=== PATIENT | female | born 1945 | race Caucasian/White ===

== ENCOUNTER → 2019-05-04 | Outpatient (CLI) | payer MEDICARE, BC ==
[~2019-05-04] MED LIST: ASPIR 8181 MG PO; ATORVASTATIN CA20 MG PO; BENICAR PO; CELEXA20 MG PO; GLIPIZIDE PO; HYDROCHLOROTHIA25 MG PO; JANUVIA100 MG PO; LEVEMIR100 UNIT/1 SC; LEVOXYL75 MCG PO; METFORMIN PO; antibiotic PO
--- NOTE | 2019-05-04 12:38 | Diagnostic Imaging Report ---
EXAM: Renal Ultrasound INDICATION: ^[id number] ^[id number] ^MICROSCOPIC HEMATURIA COMPARISON: None TECHNIQUE: Transverse and longitudinal images of the kidneys and bladder were obtained. FINDINGS: Right Kidney: Length: 10.3 cm Appearance: Normal echogenicity. Collecting system: No hydronephrosis Stones: None Cyst/Mass: None Left Kidney: Length: 10.3 cm Appearance: Normal echogenicity. Collecting system: No hydronephrosis Stones: None Cyst/Mass: Left upper pole simple cyst measures 1.3 x 1.2 x 1.3 cm Bladder: No mass, stone, or wall thickening. Prevoid volume estimate of 128cc. Bilateral ureteral jets visualized IMPRESSION: No hydronephrosis or renal calculi. Left upper pole simple cyst. Signed by: Che Durant MD on 05/04/2019 12:35 PM
== END ==
LOC: US 10:55
PROVIDERS: ATTEND Urology
DX: R31.21 Asymptomatic microscopic hematuria (principal)
CPT/HCPCS: 76770

== ENCOUNTER → 2019-05-08 | Day surgery (SDC) | payer MEDICARE, BC ==
[2019-05-05 16:26] LABS: BASOPHILS # (AUTO) 0.1 (0.0-0.1); BASOPHILS % 0.6 % (0.0-1.0); EOSINOPHILS # (AUTO) 0.2 (0.0-0.4); EOSINOPHILS % 1.3 % (0.0-6.0); HEMATOCRIT 35.6 % (34.2-44.1); HEMOGLOBIN 11.7 g/dL (12.0-16.0); LYMPHOCYTES # (AUTO) 2.1 (1.0-3.2); LYMPHOCYTES % 17.3 % (18.0-39.1); MEAN CORPUSCULAR HEMOGLOBIN 30.3 pg (28-32); MEAN CORPUSCULAR HGB CONC 32.9 g/dL (31-35); MEAN CORPUSCULAR VOLUME 92.2 fL (81-99); MONOCYTES # (AUTO) 1.1 (0.2-0.8); MONOCYTES % 9.1 % (4.4-11.3); NEUTROPHILS # (AUTO) 8.6 (2.1-6.9); NEUTROPHILS % 71.4 % (38.7-80.0); PLATELET COUNT 262 x10e3/uL (140-360); RED BLOOD COUNT 3.86 x10e6/uL (3.6-5.1); RED CELL DISTRIBUTION WIDTH 14.4 % (11.7-14.4)
[2019-05-05 16:43] LABS: ANION GAP 14.2 mmol/L (8-16); CALCIUM 9.8 mg/dL (8.4-10.2); CREATININE, SERUM 0.97 mg/dL (0.57-1.11); POTASSIUM 4.2 mmol/L (3.5-5.1)
--- NOTE | 2019-05-05 17:02 | Diagnostic Imaging Report ---
EXAMINATION: CHEST 2 VIEWS INDICATION: Pre-operative COMPARISON: None FINDINGS: TUBES and LINES: None. LUNGS: The lung volumes are normal. No focal consolidation or pulmonary edema. PLEURA: No pleural effusion or pneumothorax. HEART AND MEDIASTINUM: The cardiomediastinal silhouette is normal in size and contour. BONES AND SOFT TISSUES: No acute fracture or dislocation. UPPER ABDOMEN: No free air under the diaphragm. IMPRESSION: No focal pneumonia or pulmonary edema. Signed by: Che Durant MD on 05/05/2019 4:58 PM
[~2019-05-08] MED LIST changes: +CEFTRIAXONE SOD 1 GM/NS 50 ML 50 ML IV ONE; +DESFLURANE 240 ML BTL INH ONE; +DEXAMETHASONE SOD PHOS INJ 4 MG/ML VIAL ONE; +FENTANYL CITRATE/PF 100MCG/2 ML INJ ONE; +IOPAMIDOL 610MG/1ML 300 MG/ML VIAL IV ONE; +LIDOCAINE HCL 2% LOCAL INJ 5 ML SDV VIAL INJ ONE; +ONDANSETRON HCL INJ 2MG/ML 2ML 2 MG/ML VIAL ONE; +PROPOFOL IV EMULSION 10 MG/ML 20 ML VIAL ONE
--- OUTSIDE RECORDS SUMMARY | 2019-05-08 06:50 | XMS REPORT ---
Author Author [facility] Address Unknown Phone Unavailable Care Team Providers Care Accounting Director Name Role Phone HARMAN CABRERA Unavailable Unavailable Payers Payer Name Policy Type Policy Number Effective Date Expiration Date Problems This patient has no known problems. Allergies, Adverse Reactions, Alerts Allergy Name Allergy Type Status Severity Reaction(s) Onset Date Inactive Date Treating Clinician Comments No Known Allergies DA Active U 2017-12-08 00:00:00 Medications This patient has no known medications. Results Test Description Test Time Test Comments Text Results Atomic Results Result Comments CHEST 2 VIEWS 2019-05-05 16:57:00 [place] [address] Patient Name: HELGA ORTIZ MR #: [id number] : 1945 Age/Sex: 73/F Req #: [id number] Adm Physician: Ordered by: HARMAN CABRERA MD Report #: [id number] Location: OR Room/Bed: Procedure: [id number] DX/CHEST 2 VIEWS Exam Date: 05/05/19 Exam Time: 1610 REPORT STATUS: Signed EXAMINATION: CHEST 2 VIEWS INDICATION: Pre-operative COMPARISON: None FINDINGS: TUBES and LINES: None. LUNGS: The lung volumes are normal. No focal consolidation or pulmonary edema. PLEURA: No pleural effusion or pneumothorax. HEART AND MEDIASTINUM: The cardiomediastinal silhouette is normal in size and contour. BONES AND SOFT TISSUES: No acute fracture or dislocation. UPPER ABDOMEN: No free air under the diaphragm. IMPRESSION: No focal pneumonia or pulmonary edema. Signed by: Ofe Clark MD on 05/05/2019 4:58 PM Dictated By: OFE CLARK MD 57 Transcribed By: JAY on 05/05/191657 COPY TO: HARMAN CABRERA MD RENAL RETROPERITONEAL COMP 2019-05-04 12:33:00 [place] [address] Patient Name: HELGA ORTIZ MR #: [id number] : 1945 Age/Sex: 73/F Req #: [id number] Adm Physician: Ordered by: HARMAN CABRERA MD Report #: [id number] Location: Room/Bed: Procedure: [id number] US/US RENAL RETROPERITONEAL COMP Exam Date: 05/04/19 Exam Time: 1135 REPORT STATUS: Signed EXAM: Renal Ultrasound INDICATION: [id number] MICROSCOPIC HEMATURIA COMPARISON: None TECHNIQUE: Transverse and longitudinal images of the kidneys and bladder were obtained. FINDINGS: Right Kidney: Length: 10.3 cm Appearance: Normal echogenicity. Collecting system: No hydronephrosis Stones: None Cyst/Mass: None Left Kidney: Length: 10.3 cm Appearance: Normal echogenicity. Collecting system: No hydronephrosis Stones: None Cyst/Mass: Left upper pole simple cyst measures 1.3 x 1.2 x 1.3 cm Bladder: No mass, stone, or wall thickening. Prevoid volume estimate of 128cc. Bilateral ureteral jets visualized IMPRESSION: No hydronephrosis or renal calculi. Left upper pole simple cyst. Signed by: Ofe Clark MD on 05/04/2019 12:35 PM Dictated By: OFE CLARK MD 1235 Transcribed By: JAY on 05/04/19 1235 COPY TO: HARMAN CABRERA MD - CT HEAD/BRAIN W/O CONT 2019-04-19 17:32:00 Name: HELGA ORTIZ [facility] : 1945 Age/S: 73 / F [address] Unit #: [id number] Loc: [place] [address] Phys: Esperanza Sykes MD Acct: [id number] Dis Date: Status: REG ER PHONE #: [phone] Exam Date: 04/19/2019 1702 FAX #: [phone] Reason: head inj eval for bleeding EXAMS: CPT CODE: [id number] CT HEAD/BRAIN W/O CONT 32198 EXAM: CT of the head without contrast; INFORMATION: Status post fall, head injury, evaluate for bleeding; TECHNIQUE AND FINDINGS: CT dose reduction protocol; 2.5 mm axial scans. There is no evidence of intra or extra-axial hemorrhage, mass lesions or midline shift. Mild periventricular and deep white matter hypodensities; small, chronic basal ganglia infarcts; otherwise, unremarkable gutierrez/white matter differentiation. Ventricles are of n ormal diameter; sulci and basilar cisterns are intact. The calvarium is intact. IMPRESSION: 1. No evidence of intracranial hemorrhage or acute territorial infarction. 2. Mild chronic ischemic white matter changes. 3. No evidence of skull fracture. 4. No significant change compared with a study from December 08, 2017. at 1732 Reported and signed by: Gus Toribio M.D. CC: Esperanza Sykes MD Technologist:Arabella Saucedo CTDI: DLP: Trnscb Date/Time: 04/19/2019 (1818) Brandee Orig Print D/T: S: 04/19/2019 (3114) PAGE 1 Signed Report URINALYSIS COMPLETE 2019-04-19 16:41:00 UA COLOR (test code=COLU) YELLOW YELLOW UA APPEARANCE (test code=APPU) CLOUDY CLEAR UA GLUCOSE DIPSTICK (test code=DGLUU) norm mg/dL NEGATIVE UA BILIRUBIN DIPSTICK (test code=BILU) NEGATIVE mg/dL NEGATIVE UA KETONE DIPSTICK (test code=KETU) neg mg/dL NEGATIVE UA SPECIFIC GRAVITY (test code=SGU) 1.025 1.001-1.035 UA BLOOD DIPSTICK (test code=LISA) 150 (3+) Zachary/uL NEGATIVE UA PH DIPSTICK (test code=MARGO) 5.0 5.0-8.0 UA PROTEIN DIPSTICK (test code=PROU) 100 (2+) mg/dL Neg-15 UA UROBILINIOGEN DIPSTICK (test code=URO) norm mg/dL 0.0-0.2 UA NITRITE DIPSTICK (test code=LEONEL) POSITIVE NEGATIVE UA LEUKOCYTE ESTERASE DIPSTICK (test code=LEUU) 500 Karla/uL (3+) uL NEGATIVE UA WBC (test code=WBCU) TNTC per HPF 0-5 UA RBC (test code=RBCU) 5-10 per HPF 0-5 UA EPITHELIAL CELLS (test code=EPIU) Moderate (5-10/hpf) per HPF Few UA BACTERIA (test code=BACU) LOADED per HPF NONE Urine Source? Clean Catch
[2019-05-08 10:30] VITALS: BP 152/75
--- NOTE | 2019-05-09 21:43 | Operative Report ---
DATE OF PROCEDURE: 05/08/2019 SURGEON: Linwood Haines MD PREOPERATIVE DIAGNOSES: 1. Multiple chronic urinary tract infections. 2. Clinical signs and symptoms of interstitial cystitis. POSTOPERATIVE DIAGNOSES: 1. Multiple chronic urinary tract infections. 2. Clinical signs and symptoms of interstitial cystitis with grade 3-4 prolapse, cystocele and rectocele. PROCEDURES: 1. Cystourethroscopy with hydrodistention (entirely separate procedure for clinical signs of interstitial cystitis without hematuria). 2. Cystourethroscopy with left ureteral catheterization and left retrograde pyelogram (separate procedure for multiple chronic urinary tract infections). 3. Cystourethroscopy with right ureteral catheterization and right retrograde pyelogram (separate procedure for multiple chronic urinary tract infections). 4. Supervision of fluoroscopy. 5. Interpretation of retrograde pyelography. ANESTHESIA: General. ESTIMATED BLOOD LOSS: Minimal. COMPLICATIONS: None. INDICATIONS: Ms. Posey is a 73-year-old female with multiple chronic urinary tract infections. She and I had a long discussion about alternatives, risks, and benefits of doing nothing, cystoscopy, IVP, retrograde pyelograms, and renal ultrasound in order to avoid the nephrotoxic risk of dye. She elected to proceed with retrograde problems and hydrodistention. PROCEDURE IN DETAIL: After informed consent was obtained, the patient was taken to operative suite, placed supine on the table, underwent general anesthesia by the Anesthesia service. She was placed in the dorsal lithotomy position, sterilely prepped and draped in standard fashion for cystoscopy. A 21-Barbadian cystoscope was inserted per urethra. There was positive vaginal atrophy noted. There was grade 3-4 prolapse. Hydrodistention was performed, revealed a capacity of 1000 mL, no glomerulations, no Hunner's ulcers. Bilateral retrograde pyelogram was performed, which were normal. The bladder was drained. The patient was awakened from anesthesia and transported to the recovery room in excellent condition. Supervision of fluoroscopy and interpretation of retrograde pyelography: I was present for the entire procedure and supervised the use of fluoroscopy, there was no radiologist present. Attention was turned towards the left and right ureteral orifices, which were catheterized with an 8-Barbadian cone-tipped catheter. In retrograde fashion, contrast was injected revealing delicate ureters, delicate pelvocaliceal systems, no evidence of filling defects, no evidence of hydronephrosis. IMPRESSION: Normal retrograde pyelograms. MD AKHIL Dewitt/SHOAIB /[id number] cc: Og Mcgee MD
== END | disposition home or self-care (01) ==
LOC: OR 06:48
PROVIDERS: ATTEND Urology
DX: N30.10 Interstitial cystitis (chronic) without hematuria (principal); N81.3 Complete uterovaginal prolapse; Z01.810 Encounter for preprocedural cardiovascular examination; Z01.812 Encounter for preprocedural laboratory examination; Z01.811 Encounter for preprocedural respiratory examination; I10 Essential (primary) hypertension; K21.9 Gastro-esophageal reflux disease without esophagitis; K58.9 Irritable bowel syndrome, unspecified; E03.9 Hypothyroidism, unspecified; E11.9 Type 2 diabetes mellitus without complications; Z87.440 Personal history of urinary (tract) infections; N39.46 Mixed incontinence
CPT/HCPCS: 36415 ×2; 52260; 71046; 74420; 80048; 82948; 85025; 93005; C1758; J0696; J1100; J2001; J2405; J2704; J3010; Q9967

== ENCOUNTER 2020-08-26 22:02 | Inpatient (IN) | payer MEDICARE, BC ==
[~2020-08-26] VITALS: Ht 157.5 cm; Wt 76.2 kg
[~2020-08-26 22:02] MED LIST changes: -CEFTRIAXONE SOD 1 GM/NS 50 ML 50 ML IV ONE; -DESFLURANE 240 ML BTL INH ONE; -DEXAMETHASONE SOD PHOS INJ 4 MG/ML VIAL ONE; -FENTANYL CITRATE/PF 100MCG/2 ML INJ ONE; -IOPAMIDOL 610MG/1ML 300 MG/ML VIAL IV ONE; -LIDOCAINE HCL 2% LOCAL INJ 5 ML SDV VIAL INJ ONE; -ONDANSETRON HCL INJ 2MG/ML 2ML 2 MG/ML VIAL ONE; -PROPOFOL IV EMULSION 10 MG/ML 20 ML VIAL ONE
[2020-08-26] MEDS ORDERED: SODIUM CHLORIDE 0.9% 1000ML 1,000 ML IV STA (22:14)
[2020-08-26] MEDS ORDERED: DILTIAZEM HCL 5 MG/ML 5 ML VIAL IV STA (22:14)
[2020-08-26] MEDS ORDERED: CEFEPIME 1GM/NS 0.9% 50 ML 50 ML IV STA (22:17)
[2020-08-26] MEDS ORDERED: AZITHROMYCIN 500MG/NS 250 ML 250 ML IV STA (22:17)
[2020-08-26] MEDS ORDERED: ACETAMINOPHEN 325 MG TAB ONE (22:27)
[2020-08-26] MEDS ORDERED: ACETAMINOPHEN 325 MG TAB PO ONE (22:30)
[2020-08-26 22:51] LABS: BASOPHILS # (AUTO) 0.1 (0.0-0.1); BASOPHILS % 0.2 % (0.0-1.0); EOSINOPHILS # (AUTO) 0.1 (0.0-0.4); EOSINOPHILS % 0.5 % (0.0-6.0); HEMATOCRIT 37.6 % (34.2-44.1); HEMOGLOBIN 12.5 g/dL (12.0-16.0); LYMPHOCYTES # (AUTO) 0.7 (1.0-3.2); LYMPHOCYTES % 3.2 % (18.0-39.1); MEAN CORPUSCULAR HEMOGLOBIN 29.8 pg (28-32); MEAN CORPUSCULAR HGB CONC 33.2 g/dL (31-35); MEAN CORPUSCULAR VOLUME 89.7 fL (81-99); MONOCYTES # (AUTO) 1.2 (0.2-0.8); MONOCYTES % 5.5 % (4.4-11.3); NEUTROPHILS # (AUTO) 19.7 (2.1-6.9); NEUTROPHILS % 89.4 % (38.7-80.0); PLATELET COUNT 232 x10e3/uL (140-360); RED BLOOD COUNT 4.19 x10e6/uL (3.6-5.1); RED CELL DISTRIBUTION WIDTH 13.9 % (11.7-14.4)
[2020-08-26 22:54] LABS: ALBUMIN 3.6 g/dL (3.5-5.0); ALBUMIN/GLOBULIN RATIO 0.9 (0.8-2.0); ANION GAP 16.4 mmol/L (8-16); CALCIUM 9.8 mg/dL (8.4-10.2); CLARITY,URINE CLOUDY (CLEAR); COLOR,URINE YELLOW (YELLOW); CREATININE, SERUM 1.12 mg/dL (0.57-1.11); POTASSIUM 4.4 mmol/L (3.5-5.1)
[2020-08-26 22:55] LABS: BILIRUBIN,URINE NEGATIVE (NEGATIVE); KETONES,URINE 1+ (NEGATIVE); LEUKOCYTE ESTERASE ,URINE NEGATIVE (NEGATIVE); NITRITE,URINE NEGATIVE (NEGATIVE); PROTEIN,URINE DIPSTICK >=300 (NEGATIVE); URINE UROBILINOGEN 0.2 mg/dL (0.2 - 1)
--- OUTSIDE RECORDS SUMMARY | 2020-08-26 22:55 | XMS REPORT | Continuity of Care Document ---
Author Author [facility] t Organization [facility] Address [address] [place] [address] Phone Unavailable Care Team Providers Care Commercial Property Manager Name Role Phone Everardo SOOD, Linwood Og PCP Gina SOOD, Jane Attphys LINWOOD CABRERA Attphys Unavailable Payers Payer Name Policy Type Policy Number Effective Date Expiration Date S ource BCBSBCBS CHOICE PPO/FEDERAL EMPL [id number] 2009-PresentPPO [id number] 2009 00:00:00 Rene Santana MEDICAREMEDICARE PART A AND [id number]/10/2011-PresentDAJA HOOK [facility] [id number] 2012 00:00:00 Rene Santana Problems Condition Name Condition Details Condition Category Status Onset Date Resolution Date Last Treatment Date Treating Clinician Comments Source Parkinsonism Parkinsonism Disease Active 2020-06-08 00:00:00 Rene Santana Mild cognitive impairment Mild cognitive impairment Disease Ac tive 2020-06-08 00:00:00 Rene sofia History of TIA (transient ischemic attack) History of TIA (transient ischemic attack) Disease Active 2020-06-08 00:00:00 Daja Santana History of recurrent UTIs History of recurrent UTIs Disease Ac tive 2020-06-08 00:00:00 Rene sofia Tremor Tremor Disease Active 2020-06-08 00:00:00 Rene Santana Driving safety issue Driving safety issue Disease Active 00:00:00 Rene Santana Allergies, Adverse Reactions, Alerts Allergy Name Allergy Type Status Severity Reaction(s) Onset Date Inacti ve Date Treating Clinician Comments Source Gabapentin Propensity to adverse reactions to drug Active Anxiety 2020-06-08 00:00:00 Rene lomas No Known Allergies DA Active U 2017-12-08 00:00:00 [facility] Family History Family Member Diagnosis Comments Start Date Stop Date Source Natural father Stroke [facility] Natural mother Diabetes [facility] Natural mother Stroke [facility] Social History Social Habit Start Date Stop Date Quantity Comments Source History SDOH Alcohol Std Drinks Rene Mormon History SDOH Alcohol Binge Rene Santana Sex Assigned At Jeanine Santana Tobacco use and exposure 2020-06-09 00:00:00 2020-06-09 00:00:00 Enrrique salcedo used Rene Santana Alcohol intake 2020-06-09 00:00:00 2020-06-09 00:00:00 Lifetime non-drinker (finding) Rene Santana History SDOH Alcohol Frequency 2020-06-08 00:00:00 2020-06-08 00:00:0 0 1 Rene Santana Smoking Status Start Date Stop Date Source Never smoker Rene lomas Medications Ordered Medication Name Filled Medication Name Start Date Stop Da te Current Medication? Ordering Clinician Indication Dosage Frequency Signature (SIG) Comments Components Source carbidopa-levodopa (SINEMET) 25-100 mg per tablet 2020-06-08 00:00:00 Yes Parkinsonism, unspecified Parkinsonism type (HCC) 1/2 tab p.o. in a.m. and midafternoon with food x7 days. 1 tab twice daily as directed with food x7 days, 1 tab 3 times daily with meals Jeanine Santana Vital Signs Vital Name Observation Time Observation Value Comments Source Systolic blood pressure 2020-06-08 08:42:00 132 mm[Hg] Rene Santana Diastolic blood pressure 2020-06-08 08:42:00 77 mm[Hg] Rene Santana Heart rate 2020-06-08 08:42:00 88 /min Rene Santana Body height 2020-06-08 08:42:00 157.5 cm Rene Santana Body weight 2020-06-08 08:42:00 77.111 kg Rene Santana BMI 2020-06-08 08:42:00 31.09 kg/m2 Rene Santana Procedures Procedure Date / Time Performed Performing Clinician Guido penn COMPREHENSIVE METABOLIC PANEL 2020-06-28 11:31:00 Rasheed Fuentes VITAMIN B1 LEVEL, WHOLE BLOOD 2020-06-28 11:31:00 Rasheed Fuentes VITAMIN B12 LEVEL 2020-06-28 11:31:00 Jane Fu[facility] THYROID STIMULATING HORMONE 2020-06-28 11:31:00 Jane Fuentes T4, FREE 2020-06-28 11:31:00 Jane Fuentes Meth odist MRI BRAIN WO CONTRAST 2020-06-22 11:02:31 Jane Fuentesto n Mormon Plan of Care Planned Activity Planned Date Details Comments Source Future Scheduled Test 2020-05-21 00:00:00 INFLUENZA VACCINE [code = INFLUENZA VACCINE] Rene Sahaist Future Scheduled Test 2012 00:00:00 65+ PNEUMOCOCCAL V ACCINE (1 of 1 - PPSV23) [code = 65+ PNEUMOCOCCAL VACCINE (1 of 1 - PPSV23)] [facility] Future Scheduled Test 1997 00:00:00 BREAST CANCER SCRE ENING [code = BREAST CANCER SCREENING] [facility] Future Scheduled Test 1997 00:00:00 COLONOSCOPY SCREEN ING [code = COLONOSCOPY SCREENING] [facility] Future Scheduled Test 1997 00:00:00 SHINGLES VACCINES (#1) [code = SHINGLES VACCINES (#1)] Rene Santana Encounters Start Date/Time End Date/Time Encounter Type Ad[facility] ID Source 2020-06-22 00:00:00 2020-06-22 00:00:00 Outpatient [facility]EL[facility] [id number] Rene Santana 2020-06-08 00:00:00 2020-06-08 00:00:00 Outpatient GINA [facility]ELMO [facility] [id number] Rene Santana Results Test Description Test Time Test Comments Results Result Comments Source Comprehensive metabolic panel 2020-07-02 10:52:00 Test Item Glucose (test code = 2345-7) 194 mg/dL 65-139 H Non-fasting reference interval BUN (test code = 3094-0) 27 mg/dL 7-25 H Creatinine (test code = 2160-0) 1.10 mg/dL 0.6-0.93 H For patients >49 years of age, the reference limitfor Creatinine is approximately 13% higher for peopleidentified as -Trinidadian. EGFR Non-Afr. Trinidadian (test code = 2775) 50 > OR = 60 mL /min/1.73m2 L EGFR (test code = 94590-6) 58 > OR = 60 mL/min/1.73m2 L BUN/creatinine ratio (test code = 3097-3) 25 6- 22 (calc) H Sodium (test code = 2951-2) 138 mmol/L 135-146 Potassium (test code = 2823-3) 4.5 mmol/L 3.5-5.3 Chloride (test code = 5-0) 102 mmol/L 98-110 CO2 (test code = 2027-9) 26 mmol/L 20-32 Calcium (test code = 97550-8) 10.2 mg/dL 8.6-10.4 Protein (test code = 2885-2) 7.4 g/dL 6.1-8.1 Albumin, S (test code = 1751-7) 4.1 g/dL 3.6-5.1 Globulin, total (test code = 63846-2) 3.3 1.9- 3.7 g/dL (c alc) Albumin/globulin ratio (test code = 1759-0) 1.2 1.0- 2.5 ( calc) Total bilirubin (test code = 1974-) 0.4 mg/dL 0.2-1.2 Alkaline phosphatase (test code = 6768-6) 61 U/L 37-153 AST (test code = 1920-8) 19 U/L 10-35 ALT (test code = 1742-6) 8 U/L 6-29 JORGE (test code = JORGE) FASTING:NOFASTING: NO RAC (test code = RAC) Performing Organization Info rmation: Site ID: RGA Name: [facility] Address: [address] [place] [address] Director: Liam Best Lab Interpretation (test code = 58066-2) Abnormal [facility]i MethodistVitamin B12 [id number] 10:52:00* Test Item Value Reference Range Interpretation Comments Vitamin B12 (test code = 2132-9) 914 pg/mL 200-1100 JORGE (test code = JORGE) FASTING:NOFASTING: NO RAC (test code = RAC) Performing Organization Info rmation: Site ID: ALEENA Name: [facility] Address: [address] [place] [address] Director: Liam Johnsridge Arabi MethodistT4, [id number] 10:52:00* Test Item Value Reference Range Interpretation Comments T4, free (test code = 3024-7) 1.4 ng/dL 0.8-1.8 JORGE (test code = JORGE) FASTING:NOFASTING: NO RAC (test code = RAC) Performing Organization Info rmation: Site ID: ALEENA Name: [facility] Address: [address] [place] [address] Director: Liam Dooleyenridge Arabi MormonThyroid stimulating [id number] 10:52:00* Test Item Value Reference Range Interpretation Comments TSH (test code = 3016-3) 0.43 0.40- 4.50 mIU/L JORGE (test code = JORGE) FASTING:NOFASTING: NO RAC (test code = RAC) Performing Organization Info rmation: Site ID: ALEENA Name: [facility] Address: [address] [place] [address] Director: Liam Johnsridge Arabi MormonVitamin B1 level, whole [id number] 10:52:00* Test Item Value Reference Range Interpretation Comments Vitamin B1, whole blood (test code = 99886-7) 238 nmol/L 78-185 H Vitamin supplementation within 24 hours prior toblood draw may affect the accuracy of results. This test was developed and its analytical performance characteristics have been determined by [facility]. It has not been cleared or approved by theA. This assay has been validated pursuant to the CLIA regulations and is used for clinical purposes. JORGE (test code = JORGE) FASTING:NOFASTING: NO RAC (test code = RAC) Performing Organization Info rmation: Site ID: SLI Name: [facility] Address: [address] [place] [address] Director: Shayne Sky M.D., Ph.D Lab Interpretation (test code = 22414-4) Abnormal [facility] Brain Wo [id number] 11:45:23Hm Interface, Radiology Results - 06/22/2020 11:48 AM CDTStudy:MRI BRAIN WO CONTRASTHistory:G20 Parkinson's disease, G31.84 Mild cognitive impairment so stated, Cognitive decline. Parkinson features on the right. History of TIAs. Uncontrolled diabetesCOMPARISON:None.TECHNIQUE: Multiplanar multisequence MR images of the brain without IV contrast.FINDINGS:Parenchymal volume is normal for age. There are changes of chronic small vessel ischemic disease, mild in degree. There is also FLAIR hyperintensity signal change of the vinod without volume loss also likely related to small vessel chronic change. There is no acute infarct, hemorrhage, midline shift, hydrocephalus, extra-axial collections, or edema. The orbits are unremarkable. The visualized paranasal sinuses and mastoid air cells are without significant fluid signal. The calvarium is unremarkable.IMPRESS ION:Mild chronic small vessels ischemic change.[facility]-[id number] Mormon SCR MAMM BILATERAL SAMY CAD [id number] 13:21:54 - SCR MAMM BILATERAL SAMY CAD DIGITALBILATERAL DIGITAL SCREENING MAMMOGRAM 3D/2D WITH CAD: 06/03/2020CLINICAL: Asymptomatic. Digital breast tomosynthesis was performed in addition to routine CC and MLO views. Current mammographic images were evaluated by either a [employer] M-Vu or a [employer] ImageChecker CAD (computer aided detection system). Comparison is made to exams dated 05/15/2019 mammogram, 01/17/2018 mammogram - [facility], and 03/07/2016 mammogram - [facility] [place]. There are scattered fibroglandular tissues in jeanine th breasts. No suspicious mass, architectural distortion, malignant type calcif ication, or lymph node abnormality detected. Breast architecture is stable comp ared to prior exams.IMPRESSION: NEGATIVEThere is no mammographic evidence of mal ignancy. Resume annual screening mammography in one year. Eliseo Santana ss/penrad:06/03/2020 13:21:54 Candy Butcher: Iris Lorenzana, [facility] sent: BIRADS 1-2 Normal Mammogram BI-RADS: 1 NegativeSCR MAMM BILATERAL SAMY CAD [id number] 10:13:48 - SCR MAMM BILATERAL SAMY CAD DIGITALBILATERAL DIGITAL SCREENING MAMMOGRAM 3D/2D WITH CAD: 05/15/2019CLINICAL: Asymptomatic. Digital breast tomosynthesis was performed in addition to routine CC and MLO views. Current mammographic images were evaluated by either a [employer] M-Vu or a Gluc[employer]ista ImageCrowdsourcing.orgcker CAD (computer aided detection system). Comparison is made to exams dated 01/17/2018 mammogram - [facility]-, 03/07/2016 mammogram, and 07/06/2014 mammogram - [facility]. There are scattered fibroglandular tissues in both breasts. No suspicious mass, architectural distortion, malignant type calcif ication, or lymph node abnormality detected. Breast architecture is stable comp ared to prior exams.IMPRESSION: NEGATIVEThere is no mammographic evidence of mal ignancy. Resume annual screening mammography in one year. Becca Schulz M.D. sf/penrad:05/16/2019 10:13:48 Candy Butcher: Kami Biares , [facility] sent: BIRADS 1-2 Normal Mammogram BI-RADS: 1 Negati veCHEST 2 [id number] 16:57:00 [place] [address] Patient Name: HELGA POSEY MR #: [id number] : 1945 Age/Sex: 73/F Req #: [id number] Adm Physician: Ordered by: LINWOOD CABRERA MD Report #: [id number] Location: OR Room/Bed: Procedure: [id number] DX/CH EST 2 VIEWS Exam Date: 05/05/19 Exam Time: 1610 REPORT STATUS: Signed EXAMINATION: CHEST 2 VIEWS INDICATION: Pre-operative COMPARISON: None FINDINGS: TUBES and LINES: None. LUNGS: The lung volumes are normal. No focal consolidation or pulmonary edema. PLEURA: No pleural effusion or p neumothorax. HEART AND MEDIASTINUM: The cardiomediastinal silhouette is no rmal in size and contour. BONES AND SOFT TISSUES: No acute fracture or di slocation. UPPER ABDOMEN: No free air under the diaphragm. IMPRESSION: No focal pneumonia or pulmonary edema. Signed by: Ofe Clark MD on 4:58 PM Dictated By: OFE CLARK MD 57 Transcribed By: JAY on 05/05/191657 COPY TO: LINWOOD CABRERA MD RENAL RETROPERITONEAL [id number] 12:33:00 [place] [address] Patient Name: HELGA POSEY MR #: [id number] : 1945 Age/Sex: 73/F Req #: [id number] Adm Physician: Ordered by: LINWOOD CABRERA MD Report #: [id number] Location: Room/Bed: Procedure: [id number] US/US RENAL RETROPERITONEAL COMP Exam Date: 05/04/19 Exam Time: 1136 REPORT STATUS: Signed EXAM: Renal Ultrasound INDICATION: [id number] MICROSCOPIC HEMATURIA COMPARISON: None TECHNIQUE: Transverse and longitudinal images of the kidneys and bladder were obtained. FINDINGS: Right K idney: Length: 10.3 cm Appearance: Normal echogenicity. Collecting syst em: No hydronephrosis Stones: None Cyst/Mass: None Left Kidney: Yanet th: 10.3 cm Appearance: Normal echogenicity. Collecting system: No hydrone phrosis Stones: None Cyst/Mass: Left upper pole simple cyst measures 1.3 x 1 .2 x 1.3 cm Bladder: No mass, stone, or wall thickening. Prevoid volume estimate of 128cc. Bilateral ureteral jets visualized IMPRESSION: No hy dronephrosis or renal calculi. Left upper pole simple cyst. Signed by: Ofe Clark MD on 05/04/2019 12:35 PM Dictated By: OFE CLARK MD Electro nically Signed By: OFE CLARK MD on 05/04/19 1235 Transcribed By: JAY on 1235 COPY TO: LINWOOD CABRERA MD - CT HEAD/BRAIN W/O CONT 2019-04-19 17:32:00 Name: KALPESHHELGA LORD [facility] : 1945 Age/S: 73 / F [address] [facility] Unit #: [id number] Loc: [place] [address] Phys: Esperanza Sykes MD Acct: [id number] Dis Date: Status: REG ER PHONE #: [phone] Exam Date: 04/19/2019 1702 FAX #: [phone] Reason: head inj eval for bleeding EXAMS: CPT CODE: [id number] CT HEAD/BRAIN W/O CONT 17994 EXAM: CT of the head without contrast; INFORMATION: Status post fall, head injury, evaluate for bleeding; TECHNIQUE AND FINDINGS: CT dose reduction protocol; 2.5 mm axial scans. There is no evidence of intra or extra-axial hemorrhage, mass lesions or midline shift. Mild periventricular and deep white matter hypodensities; small, chronic basal ganglia infarcts; otherwise, unremarkable gutierrez/white matter differentiation. Ventricles are of normal diameter; sulci and basilar cisterns are intact. [...] Technologist:Arabella Saucedo CTDI: DLP: Trnscb Date/Time: 04/19/2019 (173) ChangGRW Orig Print D/T: S: 04/19/2019 (8187) PAGE 1 Signed Report URINALYSIS [id number] 16:41:00* Test Item Value Reference Range Interpretation Comments UA COLOR (test code = COLU) YELLOW YELLOW UA APPEARANCE (test code = APPU) CLOUDY CLEAR A UA GLUCOSE DIPSTICK (test code = DGLUU) norm mg/dL NEGATIVE UA BILIRUBIN DIPSTICK (test code = BILU) NEGATIVE mg/dL NEGATIVE UA KETONE DIPSTICK (test code = KETU) neg mg/dL NEGATIVE UA SPECIFIC GRAVITY (test code = SGU) 1.025 1.001-1.035 UA BLOOD DIPSTICK (test code = LISA) 150 (3+) Zachary/uL NEGATIVE A UA PH DIPSTICK (test code = MARGO) 5.0 5.0-8.0 UA PROTEIN DIPSTICK (test code = PROU) 100 (2+) mg/dL Neg-15 A UA UROBILINIOGEN DIPSTICK (test code = URO) norm mg/dL 0.0-0.2 UA NITRITE DIPSTICK (test code = LEONEL) POSITIVE NEGATIVE UA LEUKOCYTE ESTERASE DIPSTICK (test code = LEUU) 500 Karla/uL (3+) u L NEGATIVE A UA WBC (test code = WBCU) TNTC per HPF 0-5 A UA RBC (test code = RBCU) 5-10 per HPF 0-5 A UA EPITHELIAL CELLS (test code = EPIU) Moderate (5-10/hpf) per HPF Few UA BACTERIA (test code = BACU) LOADED per HPF NONE A Urine Source? Clean Catch
--- OUTSIDE RECORDS SUMMARY | 2020-08-26 22:55 | XMS REPORT | Clinical Summary ---
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 90 tablet 4 (SINEMET) 25-100 mg per in a.m. and 0 tabletIndications: midafternoon Parkinsonism, unspecified with food x7 Parkinsonism type (HCC) days. 1 tab twice daily as directed with food x7 days, 1 tab 3 times daily with meals Active Problems Problem Noted Date Parkinsonism 06/08/2020 Mild cognitive impairment 06/08/2020 History of TIA (transient ischemic attack) 0 History of recurrent UTIs 06/08/2020 Tremor 06/08/2020 Driving safety issue 06/08/2020 Encounters Care Team Description Date Type Specialty Jane Laura MD Parkinsonism, unspecified Parkinsonism t ype ([facility]); Mild cognitive impairment 06/22/2020 Hospital Radiology Encounter 06/22/2020 Travel Jane Laura MD Parkinsonism, unspecified Parkinsonism t ype (HCC) (Primary Dx); Mild cognitive impairment; History of TIA (transient ischemic attack); History of recurrent UTIs; Tremor; Driving safety issue 06/08/2020 Office Visit Neurology 06/08/2020 Travel after 08/26/2019 Surgical History Surgery Date Site/Laterality Comments FOOT SURGERY BELPHAROPTOSIS REPAIR Medical History Medical History Date Comments UTI (urinary tract infection) Hypertension Diabetes mellitus (HCC) TIA (transient ischemic attack) Family History Medical History Relation Name Comments Stroke Father Diabetes Mother Stroke Mother Relation Name Status Comments Father (Age 80) Mother Alive Social History Date Tobacco Use Types Packs/Day Years Used Never Smoker Smokeless Tobacco: Never Used Drinks/Week oz/Week Comments Alcohol Use Never Alcohol Habits Answer Date Recorded How often do you have a drink containing alcohol? Never 06/08/2020 How many drinks containing alcohol do you have on No t asked a typical day when you are drinking? How often do you have six or more drinks on one Not asked occasion? Sex Assigned at Date Recorded Not on file Last Filed Vital Signs Reading Time Taken Comments Vital Sign 132/77 06/08/2020 8:42 AM CDT Blood Pressure 88 06/08/2020 8:42 AM CDT Pulse - - Temperature - - Respiratory Rate - - Oxygen Saturation - - Inhaled Oxygen Concentration 77.1 kg (170 lb) 06/08/2020 8:42 AM CDT Weight 157.5 cm (5' 2") 06/08/2020 8:42 AM CDT Height 31.09 06/08/2020 8:42 AM CDT Body Mass Index Plan of Treatment Care Team Description Date Type Specialty Jane Laura MD 0 [facility] [address] [place] [id number] 09/26/2020 Telemedicine Neurology Health Maintenance Due Date Last Done Comments BREAST CANCER SCREENING 1997 COLONOSCOPY SCREENING 1997 SHINGLES VACCINES (#1) 1997 65+ PNEUMOCOCCAL VACCINE 2012 (1 of 1 - PPSV23) INFLUENZA VACCINE 05/21/2020 Procedures Comments Procedure Name Priority Date/Time Associated Diag nosis T4, FREE Routine 06/28/2020 Tremor 11:31 AM CDT THYROID STIMULATING Routine 06/28/2020 Mild cogni tive impairment HORMONE 11:31 AM CDT Tremor VITAMIN B12 LEVEL Routine 06/28/2020 Mild cogniti ve impairment 11:31 AM CDT VITAMIN B1 LEVEL, WHOLE Routine 06/28/2020 Mild c ognitive impairment BLOOD 11:31 AM CDT COMPREHENSIVE METABOLIC Routine 06/28/2020 Mild c ognitive impairment PANEL 11:31 AM CDT MRI BRAIN WO CONTRAST Routine 06/22/2020 Parkinso nism, unspecified 11:02 AM CDT Parkinsonism type (HCC) Mild cognitive impairment after 08/26/2019 Results * Vitamin B1 level, whole blood (06/28/2020 11:31 AM CDT) Vitamin B1, 238 (H) 78 - 185 nmol/L [facility] whole blood Comment: DI[facility]NOSTICS Vitamin supplementation within [place] 24 hours prior to [place] blood draw may affect the accuracy of results. This test was developed and its analytical performance characteristics have been determined by [facility]. It has not been cleared or approved by the FDA. This assay has been validated pursuant to the CLIA regulations and is used for clinical purposes. Specimen Blood Narrative Performed At FASTING:NO [facility] FASTING: NO Resulting Agency Comment Performing Organization Information: Site ID: [id number] [facility]: [facility] Address: [address] [place] [id number] Director: Shayne Sky M.D., Ph.D Performing Organization Address [facility] P patricia Number [facility] [address] [phone] [place] * Thyroid stimulating hormone (06/28/2020 11:31 AM CDT) Pathologist [facility] TSH 0.43 0.40 - 4.50 mIU/L [employer] [facility] [place] Specimen Blood Narrative Performed At FASTING:NO [facility] FASTING: NO Resulting Agency Comment Performing Organization Information: Site ID: [id number] Name: [facility] Address: [address] [place] [id number] Director: Liam Best Performing Organization Address City/[facility] P patricia Number [facility] [address] [phone] * T4, free (06/28/2020 11:31 AM CDT) Pathologist [facility] T4, free 1.4 0.8 - 1.8 ng/dL [employer] [place] Specimen Blood Narrative Performed At FASTING:NO [facility] FASTING: NO Resulting Agency Comment Performing Organization Information: Site ID: [id number] Name: [facility] Address: [address] [place] [id number] Director: Liam Best Performing Organization Address City/[facility] P patricia Number [facility] [address] [phone] * Vitamin B12 level (06/28/2020 11:31 AM CDT) Vitamin B12 914 200 - 1,100 pg/mL [facility] Specimen Blood Narrative Performed At FASTING:NO [facility] FASTING: NO Resulting Agency Comment Performing Organization Information: Site ID: [id number] Name: [facility] Address: [address] [place] [phone] Director: Liam Best Performing Organization Address City/State/ZIP Code P patricia Number [facility] [employer] [facility] [address] [place], [place] [address] * Comprehensive metabolic panel (06/28/2020 11:31 AM CDT) Glucose 194 (H) 65 - 139 mg/dL [facility] Comment: DI[facility]NOSTICS Non-fasting [place] reference interval BUN 27 (H) 7 - 25 mg/dL [facility] [place] Creatinine 1.10 (H) 0.60 - 0.93 mg/dL [facility] Comment: DIAGNOSTICS For patients >49 years of age, [place] the reference limit for Creatinine is approximately 13% higher for people identified as -[place]. EGFR Non-Afr. 50 (L) > OR = 60 [facility] [place] mL/min/1.73m2 [facility] [place] EGFR 58 (L) > OR = 60 [facility] [place] mL/min/1.73m2 [facility] BUN/creatinine 25 (H) 6 - 22 (calc) [facility] ratio [facility] [place] Sodium 138 135 - 146 mmol/L [facility] [place] Potassium 4.5 3.5 - 5.3 mmol/L [facility] [place] Chloride 102 98 - 110 mmol/L [facility] [place] CO2 26 20 - 32 mmol/L [facility] [place] Calcium 10.2 8.6 - 10.4 mg/dL [facility] [place] Protein 7.4 6.1 - 8.1 g/dL [facility] [place] Albumin, S 4.1 3.6 - 5.1 g/dL [facility] [place] Globulin, total 3.3 1.9 - 3.7 g/dL [facility] (calc) [facility] [place] Albumin/globuli 1.2 1.0 - 2.5 (calc) [facility] n ratio [facility] [place] Total bilirubin 0.4 0.2 - 1.2 mg/dL [facility] [place] Alkaline 61 37 - 153 U/L [facility] phosphatase [facility] [place] AST 19 10 - 35 U/L [employer] [place] ALT 8 6 - 29 U/L [employer] [place] Specimen Blood Narrative Performed At FASTING:NO [facility] FASTING: NO Resulting Agency Comment Performing Organization Information: Site ID: [id number] Name: [facility] Address: [address] [place] [address] Director: Liam Best Performing Organization Address City/State/ZIP Code P patricia Number [facility] [employer] [facility] [place] [address] [place], [place] [address] * MRI Brain Wo Contrast (06/22/2020 11:02 AM CDT) Specimen Narrative Performed At Study:MRI BRAIN WO CONTRAST [facility] History:G20 Parkinson's disease, G31.84 Mild cognitive impairment so stated, Cognitive decline. Parkinson features on the right. History of TIAs. Uncontrolled diabetes COMPARISON:None. TECHNIQUE: Multiplanar multisequence MR images of the brain without IV contrast. FINDINGS: Parenchymal volume is normal for age. T here are changes of chronic small vessel ischemic disease, mild in degree. There is also FLAIR hyperintensity signal change of the vinod without volume loss also likely related to small vessel chronic change. There is no acute infarct, hemorrhage, midlin e shift, hydrocephalus, extra-axial collections, or edema. The orbits are u nremarkable. The visualized paranasal sinuses and mastoid air cells are witho ut significant fluid signal. The calvarium is unremarkable. IMPRESSION: Mild chronic small vessels ischemic nahun nge. [id number] Procedure Note Hm Interface, Radiology Results Incoming - 06/22/2020 11:48 AM CDT Study:MRI BRAIN WO CONTRAST History:G20 Parkinson's disease, G31.84 Mild cognitive impairment so stated, Cognitive decline. Parkinson features on the right. History of TIAs. Uncontrolled diabetes COMPARISON:None. TECHNIQUE: Multiplanar multisequence MR images of the brain without IV contrast. FINDINGS: Parenchymal volume is normal for age. There are [...] without significant fluid signal. The calvarium is unremarkable. IMPRESSION: Mild chronic small vessels ischemic change. 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
[2020-08-26 23:01] LABS: CREATINE KINASE MB 1.2 ng/mL (0-5.0)
--- NOTE | 2020-08-26 23:03 | Emergency Department Note ---
History of Present Illnes History of Present Illness Chief Complaint: COVID PUI History of Present Illness This is a 75 year old female arrived to the ED with generalized weakness and malaise for 1 day. Patient also complaining of fever and headache. 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 Any updates have been documented here. Past Medical History Recent Fever: Yes Clinical Suspicion of Infectio: Yes New/Unexplained Change in Ment: No Past Medical History: Hypertension, Diabetes, Hypothyroidism, Depression Other Medical History: PARKINSON'S Past Surgical History: Tubal Ligation Social History Smoking Cessation: Never Smoker Counseling Performed: No Alcohol Use: None Any Illegal Drug Use: No Physically hurt or threatened: No Other Any Pre-Existing Lines (PICC,: No Review of Systems Review of Systems Constitutional: Reports as per HPI, Reports fever, Reports malaise, Reports weakness EENTM: Reports no symptoms Cardiovascular: Reports no symptoms Respiratory: Reports as per HPI, Reports cough Gastrointestinal: Reports no symptoms Genitourinary: Reports no symptoms Musculoskeletal: Reports no symptoms Integumentary: Reports no symptoms Neurological: Reports as per HPI, Reports headache Psychological: Reports no symptoms Endocrine: Reports no symptoms Hematological/Lymphatic: Reports no symptoms Physical Exam Related Data Allergies: Coded Allergies: No Known Allergies (Unverified , 07/31/13) Triage Vital Signs Vital Signs Date Time Temp Pulse Resp B/P (MAP) Pulse Ox O2 Delivery O2 Flow Rate FiO2 08/26/20 22:08 100.5 134 23 151/86 96 Room Air Vital signs reviewed: Yes Physical Exam CONSTITUTIONAL Constitutional: Present well-developed HENT HENT: Present normocephalic, Present atraumatic, Present oropharynx clear/moist, Present nose normal HENT L/R: Present left ext ear normal, Present right ext ear normal EYES Eyes: Reports PERRL, Reports conjunctivae normal NECK Neck: Present ROM normal PULMONARY Pulmonary: Present effort normal, Present breath sounds normal CARDIOVASCULAR Cardiovascular: Present irregular rhythm, Present heart sounds normal, Present capillary refill normal, Present tachycardia GASTROINTESTINAL Abdominal: Present soft, Present nontender, Present bowel sounds normal GENITOURINARY Genitourinary: Present exam deferred SKIN Skin: Present warm, Present dry MUSCULOSKELETAL Musculoskeletal: Present ROM normal NEUROLOGICAL Neurological: Present alert, Present no gross motor or sensory deficits PSYCHOLOGICAL Psychological: Present mood/affect normal, Present judgement normal Results Laboratory Result Diagram: 08/26/20221408/26/202214 Laboratory Laboratory Tests Test 08/26/20 22:30 08/26/20 22:15 White Blood Count 22.02 x10e3/uL (4.8-10.8) Red Blood Count 4.19 x10e6/uL (3.6-5.1) Hemoglobin 12.5 g/dL (12.0-16.0) Hematocrit 37.6 % (34.2-44.1) Mean Corpuscular Volume 89.7 fL (81-99) Mean Corpuscular Hemoglobin 29.8 pg (28-32) Mean Corpuscular Hemoglobin Concent 33.2 g/dL (31-35) Red Cell Distribution Width 13.9 % (11.7-14.4) Platelet Count 232 x10e3/uL (140-360) Neutrophils (%) (Auto) 89.4 % (38.7-80.0) Lymphocytes (%) (Auto) 3.2 % (18.0-39.1) Monocytes (%) (Auto) 5.5 % (4.4-11.3) Eosinophils (%) (Auto) 0.5 % (0.0-6.0) Basophils (%) (Auto) 0.2 % (0.0-1.0) Neutrophils # (Auto) 19.7 (2.1-6.9) Lymphocytes # (Auto) 0.7 (1.0-3.2) Monocytes # (Auto) 1.2 (0.2-0.8) Eosinophils # (Auto) 0.1 (0.0-0.4) Basophils # (Auto) 0.1 (0.0-0.1) Absolute Immature Granulocyte (auto 0.27 x10e3/uL (0-0.1) Urine Color Yellow (YELLOW) Urine Clarity Cloudy (CLEAR) Urine pH 5 (5 - 7) Urine Specific [facility] >=1.030 (1.010-1.025) Urine Protein >=300 (NEGATIVE) Urine Glucose (UA) 2+ (NEGATIVE) Urine Ketones 1+ (NEGATIVE) Urine Blood Negative (NEGATIVE) Urine Nitrite Negative (NEGATIVE) Urine Bilirubin Negative (NEGATIVE) Urine Urobilinogen 0.2 mg/dL (0.2 - 1) Urine Leukocyte Esterase Negative (NEGATIVE) Sodium Level 134 mmol/L (136-145) Potassium Level 4.4 mmol/L (3.5-5.1) Chloride Level 100 mmol/L (98-107) Carbon Dioxide Level 22 mmol/L (22-29) Anion Gap 16.4 mmol/L (8-16) Blood Urea Nitrogen 18 mg/dL (7-26) Creatinine 1.12 mg/dL (0.57-1.11) Estimat Glomerular Filtration Rate 48 ML/MIN (60-) BUN/Creatinine Ratio 16 (6-25) Glucose Level 253 mg/dL (74-118) Lactic Acid Level 2.3 mmol/L (0.5-2.0) Calcium Level 9.8 mg/dL (8.4-10.2) Total Bilirubin 0.7 mg/dL (0.2-1.2) Aspartate Amino Transf (AST/SGOT) 16 IU/L (5-34) Alanine Aminotransferase (ALT/SGPT) 25 IU/L (0-55) Alkaline Phosphatase 62 IU/L (40-150) Creatine Kinase 83 IU/L (29-168) Total Protein 7.7 g/dL (6.5-8.1) Albumin 3.6 g/dL (3.5-5.0) Globulin 4.1 g/dL (2.3-3.5) Albumin/Globulin Ratio 0.9 (0.8-2.0) Lipase 16 U/L (8-78) Lab results reviewed: Yes Imaging Imaging results reviewed: Yes Procedures 12 Lead ECG Interpretation ECG Interpretation : ECG: ECG 1 Prior ECG tracings: reviewed Rhythm: atrial fibrillation Rate: tachycardia ST segments normal: Yes Clinical Impression: abnormal ECG Critical Care Time Total Critical Care Time (min): 65 Critical care time exclusive o: separately billable procedures Critcal care necessary due to: cardiac failure, sepsis Assessment & Plan Medical Decision Making MDM Concerns of severe sepsis present at 2252, patient's symptoms may be related to the coronavirus, however, sep-1 bundle was initiated Blood cultures and lactic acid obtained Broad-spectrum antibiotics were given Patient noted to be in A. fib with RVR, this may be secondary to infectious etiology, fluid resuscitation and fever control provided Lactic acid improved, no indications for weight base fluid bolus given no presence of septic shock at time of admission. Assessment & Plan Final Impression: (1) Atrial fibrillation with RVR (2) Severe sepsis (3) Pneumonia Depart Disposition: ADMITTED Last Vital Signs Date Time Temp Pulse Resp B/P (MAP) Pulse Ox O2 Delivery O2 Flow Rate FiO2 08/26/20 22:51 143 27 130/72 96 Room Air 08/26/20 22:08 100.5 Home Meds Reported Medications Aspirin (ASPIR 81) 81 Mg Tablet.dr, 81 MG PO DAILY 05/05/19 Insulin Detemir (LEVEMIR) 100 Unit/1 Ml Vial, 12 SC HS 05/05/19 Sitagliptin Phosphate (JANUVIA) 100 Mg Tablet, 100 MG PO DAILY, #30 TAB 05/05/19 Atorvastatin Calcium (ATORVASTATIN CALCIUM) 20 Mg Tablet, 20 MG PO HS, #30 TAB 05/05/19 Citalopram Hydrobromide (CELEXA) 20 Mg Tablet, 40 MG PO DAILY 07/31/13 Levothyroxine Sodium (LEVOXYL) 75 Mcg Tablet, 112 MCG PO DAILY 07/31/13 [Metformin] 1,000 No Conflict Check, PO BID 07/31/13 Medications in the ED Sodium Chloride 1,000 ml @ 0 mls/hr Q0M STAT IV Last administered on 08/26/20at 22:34; Admin Dose 999 MLS/HR; Start 08/26/20 at 22:14; Stop 08/26/20 at 22:16; Status DC Diltiazem HCl 10 mg NOW STAT IV ; Start 08/26/20 at 22:14; Stop 08/26/20 at 22:17; Status DC Acetaminophen 650 mg ONCE ONCE PO Last administered on 08/26/20at 22:34; Admin Dose 650 MG; Start 08/26/20 at 22:30; Stop 08/26/20 at 22:31; Status DC Cefepime HCl 50 ml @ 100 mls/hr DAILY STAT IV ; Start 08/26/20 at 22:17; Stop 08/26/20 at 22:46; Status DC Azithromycin 250 ml @ 200 mls/hr NOW STAT IV Last administered on 08/26/20at 22:30; Admin Dose 200 MLS/HR; Start 08/26/20 at 22:17; Stop 08/26/20 at 23:31 Acetaminophen 650 mg STK-MED ONCE .ROUTE ; Start 08/26/20 at 22:27; Stop 08/26/20 at 22:20; Status DC KEVIN BUTLER DO Aug 26, 2020 22:58
[2020-08-26 23:05] LABS: BACTERIA,URINE MANY /HPF; EPITHELIAL CELLS,URINE FEW /LPF; WBC,URINE (MAN) >50 /HPF (0-5)
--- NOTE | 2020-08-26 23:13 | Diagnostic Imaging Report ---
EXAMINATION: CHEST SINGLE (PORTABLE) INDICATION: ^Y ^weakness ^[id number] ^[id number] COMPARISON: 05/05/2019 FINDINGS: AP view TUBES and LINES: None. LUNGS: Lungs are well inflated. Prominent interstitial lung markings. Left basilar hazy opacification. PLEURA: No pneumothorax. HEART AND MEDIASTINUM: The cardiac silhouette is partially obscured. BONES AND SOFT TISSUES: No acute osseous lesion. Soft tissues are unremarkable. UPPER ABDOMEN: No free air under the diaphragm. IMPRESSION: Prominent interstitial lung markings, could be chronic or represent mild interstitial edema. Left basilar hazy opacification representing small effusion/atelectasis. Underlying pneumonia cannot be excluded in the appropriate clinical context. Signed by: Dr. Ki Nava MD on 08/26/2020 11:10 PM
[2020-08-26] MEDS ORDERED: SODIUM CHLORIDE 0.9% 1000ML 1,000 ML ONE (23:52)
[2020-08-27] VITALS (11 sets, daily range): BP systolic 121–159; BP diastolic 53–63
[2020-08-27] MEDS ORDERED: SODIUM CHLORIDE 0.9% 1000ML 1,000 ML IV ONE
[2020-08-27] MEDS ORDERED: VANCOMYCIN HCL 1GM/NS 250 ML BAG IV SCH (00:15)
--- OUTSIDE RECORDS SUMMARY | 2020-08-27 00:26 | XMS REPORT | Clinical Summary ---
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 Name Role Phone Og Mcgee MD PCP [...] Laura MD Parkinsonism, unspecified Parkinsonism t ype (FORM[facility]); Mild cognitive impairment 06/22/2020 Hospital Radiology Encounter 06/22/2020 Travel Jane Laura MD Parkinsonism, unspecified Parkinsonism t ype (HCC) (Primary Dx); Mild cognitive impairment; History of TIA (transient ischemic attack); History of recurrent UTIs; Tremor; Driving safety issue 06/08/2020 Office Visit Neurology 06/08/2020 Travel after 08/27/2019 Surgical History Surgery Date Site/Laterality Comments FOOT [...] Date Type Specialty Jane Laura MD 0 [facility] [address] [place] [id number] 09/26/2020 Telemedicine Neurology Health Maintenance Due [...] Parkinsonism type (HCC) Mild cognitive impairment after 08/27/2019 Results * Vitamin B1 level, whole blood (06/28/2020 11:31 AM CDT) Vitamin B1, 238 (H) 78 - 185 nmol/L [facility] whole blood Comment: DIAGNOSTICS Vitamin supplementation within [place] 24 hours prior to [place] blood draw may affect the accuracy of results. This test was developed and its analytical performance characteristics have been determined by [employer]. It has not been cleared or approved by the FDA. This assay has been validated pursuant to the CLIA regulations and is used for clinical purposes. Specimen Blood Narrative Performed At FASTING:NO [facility] FASTING: NO Resulting Agency Comment Performing Organization Information: Site ID: [id number] [facility]: [facility] Address: [address] [place] [phone] Director: Shayne Sky M.D., Ph.D Performing Organization Address [facility] P patricia Number [facility] [address] [address] [place] * Thyroid stimulating hormone (06/28/2020 11:31 AM CDT) Pathologist [facility] TSH 0.43 0.40 - 4.50 mIU/L [facility] [place] Specimen Blood Narrative Performed At FASTING:NO [facility] FASTING: NO Resulting Agency Comment Performing Organization Information: Site ID: RGA Name: [facility] Address: [address] [place] [phone] Director: Liam Best Performing Organization Address City/[facility] P patricia Number [facility] [address] [address] * T4, free (06/28/2020 11:31 AM CDT) Pathologist [facility] T4, free 1.4 0.8 - 1.8 ng/dL [employer] [place] Specimen Blood Narrative Performed At FASTING:NO [facility] FASTING: NO Resulting Agency Comment Performing Organization Information: Site ID: RGA Name: [facility] Address: [address] [place] [phone] Director: Liam Best Performing Organization Address City/[facility] P patricia Number [facility] [address] 6[address] * Vitamin B12 level (06/28/2020 11:31 AM CDT) Vitamin B12 914 200 - 1,100 pg/mL [facility] Specimen Blood Narrative Performed At FASTING:NO [facility] FASTING: NO Resulting Agency Comment Performing Organization Information: Site ID: RGA Name: [facility] Lab Address: [address] [place] [phone] Director: Liam Best Performing Organization Address City/State/ZIP Code P patricia Number [facility] [address] [place], [place] [address] * Comprehensive metabolic panel (06/28/2020 11:31 AM CDT) Glucose 194 (H) 65 - 139 mg/dL [facility] Comment: DIAGNOSTICS Non-fasting [place] reference interval BUN 27 (H) 7 - 25 mg/dL [facility] [place] Creatinine 1.10 (H) 0.60 - 0.93 mg/dL [facility] Comment: DIAGNOSTICS For patients >49 years of age, [place] the reference limit for Creatinine is approximately 13% higher for people identified as -Chinese. EGFR Non-Afr. 50 (L) > OR = 60 [facility] Chinese mL/min/1.73m2 [facility] [place] EGFR 58 (L) > OR = 60 [facility] Chinese mL/min/1.73m2 [facility] BUN/creatinine 25 (H) 6 - 22 (calc) [facility] [place] Sodium 138 135 - 146 mmol/L [facility] [place] Potassium 4.5 3.5 - 5.3 mmol/L [facility] [place] Chloride 102 98 - 110 mmol/L [facility] [place] CO2 26 20 - 32 mmol/L [facility] [place] Calcium 10.2 8.6 - 10.4 mg/dL [facility] [place] Protein 7.4 6.1 - 8.1 g/dL [facility] [place] Albumin, S 4.1 3.6 - 5.1 g/dL [facility] [place] Globulin, total 3.3 1.9 - 3.7 g/dL [facility] (calc) [facility] [place] Albumin/globuli 1.2 1.0 - 2.5 (calc) [facility] n [facility] [place] Total bilirubin 0.4 0.2 - 1.2 mg/dL [facility] [place] Alkaline 61 37 - 153 U/L [facility] phosphatase [facility] [place] AST 19 10 - 35 U/L [employer] [place] ALT 8 6 - 29 U/L [employer] [place] Specimen Blood Narrative Performed At FASTING:NO [facility] FASTING: NO Resulting Agency Comment Performing Organization Information: Site ID: ALEENA Name: [facility] Address: [address] [place] [address] Director: Liam Best Performing Organization Address City/State/ZIP Code P patricia Number [facility] [place] [address] [place], [place] [address] * MRI Brain Wo [...] Mild chronic small vessels ischemic nahun nge. [id number] Procedure Note Hm Interface, Radiology Results Incoming [...] IMPRESSION: Mild chronic small vessels ischemic change. [facility][id number] Performing Organization Address City/State/ZIP Code P patricia Number [facility] [address] [place] [address] after 08/27/2019 Insurance Type Payer Benefit Subscriber ID Effective Phone Address Plan / Dates Group PPO BCBS BCBS [id number] 2009-P CHOICE resent PPO/OPHELIA [employer] EMPL PPO Medicare MEDICARE MEDICARE [id number] 2012-P [place], PART A AND resent [place] B Advance Directives For more information, please contact: [phone] Patient Clinic Specialist Explanation Type Date Recorded Advance Directives, Living Will and Medical Power of Operations Consultant
--- OUTSIDE RECORDS SUMMARY | 2020-08-27 00:27 | XMS REPORT | Continuity of Care Document ---
Author Author [facility] t Organization [facility] Address [address] [place] [address] Phone Unavailable Care Team Providers Care Spot Washer Name Role Phone Everardo SOOD, Linwood Og PCP Luis Enrique BUTLER Attphys Unavailable Jane Fuentes MD Attphys LINWOOD CABRERA Attphyluis enrique Unavailable Payers Payer Name Policy Type Policy Number Effective Date Expiration Date S kristian BCBSBCBS CHOICE PPO/[employer] EMPL [id number] 2009-PresentPPO [id number] 2009 00:00:00 Rene Santana MEDICAREMEDICARE PART A AND [id number] 2011-PresentDAJA HOOK [place] [id number] 2012 00:00:00 Rene Santana Problems Condition Name [...] recurrent UTIs Disease Ac tive 2020-06-08 00:00:[address] Tremor Tremor Disease Active 2020-06-08 00:00:00 Rene Santana Driving safety issue Driving safety issue Disease Active 00:00:00 Rene Santana Allergies, Adverse Reactions, Alerts Allergy Name Allergy Type Status Severity Reaction(s) Onset Date Inacti ve Date Treating Clinician Comments Source Gabapentin Propensity to adverse reactions to drug Active Anxiety 2020-06-08 00:00:00 Rene lomas No Known Allergies DA Active U 2017-12-08 00:00:00 [facility] Family History Family Member Diagnosis Comments Start Date Stop Date Source Natural father Stroke [place] [facility] Natural mother Diabetes [place] [facility] Natural mother Stroke [place] [facility] Social History Social Habit Start Date Stop Date Quantity Comments Source History SDOH Alcohol Std Drinks Rene Santana History SDOH Alcohol Binge Rene Santana Sex Assigned At Jeanine Santana Tobacco use and exposure 2020-06-09 00:00:00 2020-06-09 00:00:00 Enrrique r used Rene Santana Alcohol intake 2020-06-09 00:00:00 [...] Procedure Date / Time Performed Performing Clinician Sourtamiko e COMPREHENSIVE METABOLIC PANEL 2020-06-28 11:31:00 Rasheed Fuentes VITAMIN B1 LEVEL, WHOLE BLOOD 2020-06-28 11:31:00 Rasheed Fuentes VITAMIN B12 LEVEL 2020-06-28 11:31:00 Jane Fuentes [facility] THYROID STIMULATING HORMONE 2020-06-28 11:31:00 Jane Fuentes T4, FREE 2020-06-28 11:31:00 Jane Fuentes Meth odist MRI BRAIN WO CONTRAST 2020-06-22 11:02:31 Jane Fuentes Plan of Care Planned Activity Planned Date Details Comments Source Future Scheduled Test 2020-05-21 00:00:00 INFLUENZA VACCINE [code = INFLUENZA VACCINE] [facility] Future Scheduled Test 2012 00:00:00 65+ PNEUMOCOCCAL V ACCINE (1 of 1 - PPSV23) [code = 65+ PNEUMOCOCCAL VACCINE (1 of 1 - PPSV23)] [facility] Future Scheduled Test 1997 00:00:00 BREAST CANCER SCRE ENING [code = BREAST CANCER SCREENING] [facility] Future Scheduled Test 1997 00:00:00 COLONOSCOPY SCREEN ING [code = COLONOSCOPY SCREENING] [facility] Future Scheduled Test 1997 00:00:00 SHINGLES VACCINES (#1) [code = SHINGLES VACCINES (#1)] Rene Santana Encounters Start Date/Time End Date/Time En[facility] ID Source 2020-06-22 00:00:00 2020-06-22 00:00:00 Outpatient [facility] [id number] Rene Santana 2020-06-08 00:00:00 2020-06-08 00:00:00 Outpatient [facility] [id number] Rene Santana Results Test Description Test Time Test Comments Results Result Comments Source CHEST SINGLE (PORTABLE) 2020-08-26 23:08:00 [facility] 1945 Sex: F [facility] [address] [address] Patient Name: HELGA POSEY MR #: [id number] : 1945 Age/Sex: 75/F Req #: [id number] Adm Physician: Ordered by: KEVIN BUTLER DO Report #: [id number] Location: ER Room/Bed: Procedure: [id number] DX/CHEST SINGLE (PORTABLE) Exam Date: 08/26/20 Exam Time: 2249 REPORT STATUS: Signed EXAMINATION: CHEST SINGLE (PORTABLE) INDICATION: Y weakness [id number] COMPARISON: 05/05/2019 FINDINGS: AP view TUBES and LINES: None. LUNGS: Lungs are well inflated. Prominent interstitial lung markings. Left basilar hazy opacification. PLEURA: No pneumothorax. HEART AND MEDIASTINUM: The cardiac silhouette is partially obscured. BONES AND SOFT TISSUES: No acute osseous lesion. Soft tissues are unremarkable. UPPER ABDOMEN: No free air under the diaphragm. IMPRESSION: Prominent interstitial lung markings, could be chronic or represent mild interstitial edema. Left basilar hazy opacification representing small effusion/atelectasis. Underlying pneumonia cannot be excluded in the appropriate clinical context. Signed by: Dr. iK thibodeaux MD on 08/26/2020 11:10 PM Dictated By: KI HANNON MD 09 Transcribed By: JAY on 08/26/202309 COPY TO: KEVIN BUTLER DO Comprehensive metabolic panel 2020-07-02 10:52:00 Test Item Glucose (test code = 2345-7) 194 mg/dL 65-139 H Non-fasting reference interval BUN (test code = 3094-0) 27 mg/dL 7-25 H Creatinine (test code = 2160-0) 1.10 mg/dL 0.6-0.93 H For patients >49 years of age, the reference limitfor Creatinine is approximately 13% higher for peopleidentified as -Nigerien. EGFR Non-Afr. Nigerien (test code = 2775) 50 > OR = 60 mL /min/1.73m2 L EGFR (test code = 94535-7) 58 > OR = 60 mL/min/1.73m2 L BUN/creatinine ratio (test code = 3097-3) 25 6- 22 (calc) H Sodium (test code = 2951-2) 138 mmol/L 135-146 Potassium (test code = 2823-3) 4.5 mmol/L 3.5-5.3 Chloride (test code = 2074-0) 102 mmol/L 98-110 CO2 (test code = 2027-9) 26 mmol/L 20-32 Calcium (test code = 50665-6) 10.2 mg/dL 8.6-10.4 Protein (test code = 2885-2) 7.4 g/dL 6.1-8.1 Albumin, S (test code = 1751-7) 4.1 g/dL 3.6-5.1 Globulin, total (test code = 05206-2) 3.3 1.9- 3.7 g/dL (c alc) Albumin/globulin [...] Organization Info rmation: Site ID: ALEENA Name: [facility] Address: [address] [place] [address] Director: Liam Best Lab Interpretation (test code = 63180-3) Abnormal [facility] Methodist[facility]itamin B12 [id number] 10:52:00* Test Item Value Reference Range Interpretation Comments Vitamin B12 (test code = 2132-9) 914 pg/mL 200-1100 JORGE (test code = JORGE) FASTING:NOFASTING: NO RAC (test code = RAC) Performing Organization Info rmation: Site ID: ALEENA Name: [facility] Address: [address] [place] [address] Director: Liam SahaistT4, [id number] 10:52:00* Test Item Value Reference Range Interpretation Comments T4, free (test code = 3024-7) 1.4 ng/dL 0.8-1.8 JORGE (test code = JORGE) FASTING:NOFASTING: NO RAC (test code = RAC) Performing Organization Info rmation: Site ID: ALEENA Name: [facility] Address: [address] [place] [address] Director: Liam Best [facility] [place] MethodistThyroid stimulating [id number] 10:52:00* Test Item Value Reference Range Interpretation Comments TSH (test code = 3016-3) 0.43 0.40- 4.50 mIU/L JORGE (test code = JORGE) FASTING:NOFASTING: NO RAC (test code = RAC) Performing Organization Info rmation: Site ID: MOHINDERA Name: [facility] Address: [address] [place] [address] Director: Liam Best [place] TaoistVitamin B1 level, whole [id number] 10:52:00* Test Item Value Reference Range Interpretation Comments Vitamin B1, whole blood (test code = 42166-8) 238 nmol/L 78-185 H Vitamin supplementation within 24 hours prior toblood draw may affect the accuracy of results. This test was developed and its analytical performance characteristics have been determined by [employer]. It has not been cleared or approved by theA. This assay has been validated pursuant to the CLIA regulations and is used for clinical purposes. JORGE (test code = JORGE) FASTING:NOFASTING: NO RAC (test code = RAC) Performing Organization Info rmation: Site ID: SLI Name: [facility] Address: [address] [place] [address] Director: Shayne Sky M.D., Ph.D Lab Interpretation (test code = 78308-2) Abnormal [facility] Brain Wo [id number] 11:45:23Hm Interface, Radiology Results - 06/22/2020 11:48 [...] is unremarkable.IMPRESS ION:Mild chronic small vessels ischemic change.[facility]-[id number] Taoist SCR MAMM BILATERAL SAMY CAD [id number] 13:21:54 - SCR MAMM BILATERAL SAMY CAD DIGITALBILATERAL DIGITAL SCREENING MAMMOGRAM 3D/2D WITH CAD: 06/03/2020CLINICAL: Asymptomatic. Digital breast tomosynthesis was performed in addition to routine CC and MLO views. Current mammographic images were evaluated by either a [employer] M-Vu or a [employer] CAD (computer aided detection system). Comparison is made to exams dated 05/15/2019 mammogram, 01/17/2018 mammogram - [facility]-, and 03/07/2016 mammogram - [facility] Patient [facility] [place]. There are scattered fibroglandular tissues in jeanine th breasts. No suspicious mass, architectural distortion, malignant type calcif ication, or lymph node abnormality detected. Breast architecture is stable comp ared to prior exams.IMPRESSION: NEGATIVEThere is no mammographic evidence of mal ignancy. Resume annual screening mammography in one year. Eliseo Santana ss/penrad:06/03/2020 13:21:54 Inside Sales Advertising Executive: Iris Lorenzana, [facility]-FWletter sent: BIRADS 1-2 Normal Mammogram BI-RADS: 1 NegativeSCR MAMM BILATERAL SAMY CAD [id number] 10:13:48 - SCR MAMM BILATERAL SAMY CAD DIGITALBILATERAL DIGITAL SCREENING MAMMOGRAM 3D/2D WITH CAD: 05/15/2019CLINICAL: Asymptomatic. Digital breast tomosynthesis was performed in addition to routine CC and MLO views. Current mammographic images were evaluated by either a [employer] M-Vu or a [employer] ImageSkysheetcker CAD (computer aided detection system). Comparison is made to exams dated 01/17/2018 mammogram - [facility], 03/07/2016 mammogram, and 07/06/2014 mammogram - [facility] [place]. There are scattered fibroglandular tissues in both breasts. No suspicious mass, architectural distortion, malignant type calcif ication, or lymph node abnormality detected. Breast architecture is stable comp ared to prior exams.IMPRESSION: NEGATIVEThere is no mammographic evidence of mal ignancy. Resume annual screening mammography in one year. Becca Schulz M.D. sf/penrad:05/16/2019 10:13:48 Inside Sales Advertising Executive: Kami VERA, [facility]-FWletter sent: BIRADS 1-2 Normal Mammogram BI-RADS: 1 Negati veCHEST 2 [id number] 16:57:[address] [place] [address] Patient Name: HELGA POSEY MR #: [id number] : 1945 Age/Sex: 73/F Req #: [id number] Adm Physician: Ordered by: LINWOOD CABRERA MD Report #: [id number] Location: OR Room/Bed: Procedure: [id number] DX/CH EST 2 VIEWS Exam Date: 05/05/19 [...] COPY TO: LINWOOD CABRERA MD RENAL RETROPERITONEAL [id number] 12:33:00 [place] [address] Patient Name: HELGA POSEY MR #: [id number] : 1945 Age/Sex: 73/F Req #: [id number] Adm Physician: Ordered by: LINWOOD CABRERA MD Report #: [id number] Location: US Room/Bed: Procedure: [id number] US/US RENAL RETROPERITONEAL COMP Exam Date: 05/04/19 Exam Time: 1136 REPORT STATUS: Signed EXAM: Renal Ultrasound INDICATION: [id number] MICROSCOPIC HEMATURIA COMPARISON: None TECHNIQUE: Transverse and [...] OFE CLARK MD Electro nically Signed By: OEF CLARK MD on 05/04/19 1235 Transcribed By: JAY on 1235 COPY TO: LINWOOD CABRERA MD - CT HEAD/BRAIN W/O CONT 2019-04-19 17:32:00 Name: DIANAHELGA [facility] : 1945 Age/S: 73 / F [address] [address] Unit #: [id number] Loc: [place] [address] Phys: Esperanza Sykes MD Acct: [id number] Dis Date: Status: REG ER PHONE #: [phone] Exam Date: 04/19/2019 1702 FAX #: [phone] Reason: head inj eval for bleeding EXAMS: CPT CODE: [id number] CT HEAD/BRAIN W/O CONT 57307 EXAM: CT of the head without contrast; [...] a study from December 08, 2017. at 9482 Reported and signed by: Gus Toribio M.D. CC: Esperanza Sykes MD Technologist:Arabella Saucedo CTDI: DLP: Trnscb Date/Time: 04/19/2019 (1731) ChangGRW Orig Print D/T: S: 04/19/2019 (0662) PAGE 1 Signed Report URINALYSIS [id number] 16:41:00* Test Item Value Reference Range Interpretation [...]
[2020-08-27] MEDS ORDERED: DEXTROSE 50% SYRINGE 50 ML IV PRN (01:15)
[2020-08-27] MEDS ORDERED: ACETAMINOPHEN 325 MG TAB PO PRN (01:15)
[2020-08-27] MEDS ORDERED: NITROFURANTOIN100 M1 (06:27)
[2020-08-27] MEDS ORDERED: LOSARTAN POTASS25 MG PO (06:27)
[2020-08-27] MEDS ORDERED: ESCITALOPRAM OX20 MG PO (06:27)
[2020-08-27] MEDS ORDERED: LEVOTHYROXINE100 MCG PO (06:46)
[2020-08-27] MEDS: VANCOMYCIN HCL 1GM/NS 250 ML BAG IV SCH (07:13)
[2020-08-27] MEDS: INSULIN REGULAR, HUMAN 100 UNIT/1 ML 3ML VIAL SQ SCH ×4 (07:45→21:00)
[2020-08-27] MEDS: CEFTRIAXONE SOD 1 GRAM/0.9% SOD CHL 50ML BAG IV SCH (09:27)
[2020-08-27] MEDS: SITAGLIPTIN 100 MG TAB PO SCH (11:00)
[2020-08-27] MEDS: ASPIRIN 81 MG CHEW TAB PO SCH (11:32)
--- NOTE | 2020-08-27 15:13 | NUR ---
Report called to Dalia HILTON, no questions noted at this time. Patient sent with belongings and tele, tolerating well. Aleksandra (Daughter) made aware of room change.
--- NOTE | 2020-08-27 15:15 | NUR ---
RECEIVED PT FROM [facility]. NO SIGNS OF ANY RESP DISTRESS, NO COUGHING NOTED AT THIS TIME. TELE #40 SR. HL IN LAC. PT ORIENTED TO FLOOR AND ROOM,
--- NOTE | 2020-08-27 16:48 | Consultation ---
DATE OF CONSULTATION: Cardiology Consultation. REASON FOR CONSULTATION: Atrial fibrillation with RVR. HISTORY OF PRESENT ILLNESS: Ms. Posey is a 75-year-old female with a pertinent past medical history of hypertension, recurrent UTIs and incontinence, who reports that she came into the ER after a few days of weakness to the point that she was unable to stand and for that reason, she sought urgent care. During her ER visit, she was noted to be in atrial fibrillation with RVR and was able to be converted to normal rhythm after IV diltiazem x1. She remains in rhythm at this time. We were consulted to manage her atrial fibrillation. The patient denies any history of cardiac disease. She does report she has been on antibiotics due to recurrent UTIs and sees a urologist for this reason and prior to her admission, she noted some hematuria. She denies any palpitations, shortness of breath, dizziness, syncope, edema, orthopnea, PND, or chest pain. REVIEW OF SYSTEMS: Negative except as mentioned above. PAST SURGICAL HISTORY: Ankle surgery and tubal ligation. FAMILY HISTORY: Noncontributory. PAST MEDICAL HISTORY: Hypertension, recurring UTIs and incontinence. PHYSICAL EXAMINATION: VITAL SIGNS: Temperature 99.4, pulse 82, respiratory rate 18, blood pressure 128/59, oxygen saturation 97% on room air. GENERAL: Alert and oriented x3. Resting comfortably in the bed. No acute distress. NECK: Supple. No JVD noted. CARDIOVASCULAR: Regular rate and rhythm. Normal S1, S2. No murmurs, no gallops. LUNGS: Clear to auscultation in the upper lobes. Diminished breath sounds posterior lower lobes with some fine crackles. ABDOMEN: Soft and nontender. LOWER EXTREMITIES: No edema. 2+ pedal pulses. NEUROLOGICAL: Alert and oriented. Normal affect. CARDIOVASCULAR MEDICATION: None at this time. LABORATORY DATA: WBC 22.02, hemoglobin 12.5, hematocrit 37.6, platelets 232. Sodium 134, potassium 4.4, creatinine 1.12. Lactic acid 2.3, AST 16, ALT 25, CK-MB 1.20, troponin 0.041. BNP 77.9. X-ray with prominent interstitial lung markings could be chronic or represent mild interstitial edema left basilar heavy opacification. TELEMETRY: Normal sinus rhythm. IMPRESSION: 1. Paroxysmal atrial fibrillation. 2. Pneumonia. 3. Urinary tract infection. 4. Hypertension. 5. Sepsis. RECOMMENDATIONS: Continue with antimicrobial therapy per primary care directions. Maintain on telemetry at all time. We will obtain an echocardiogram this morning. Hold off anticoagulation at this time given recent history of hematuria and no recurrence of atrial fibrillation. We will continue to follow this patient very closely. We thank you for this consultation and allowing us to participate in this patient's care. MD BETSEY Damon/SHOAIB /[id number]
--- NOTE | 2020-08-27 20:11 | NUR ---
PT RESTING IN BED EATING. NO C/O CHEST PAIN. PT IN STABLE CONDITION. BED ALARM APPLIED. TELL APPLIED. BEDSIDE SHIFT REPORT GIVEN TO ONCOMING NURSE.
[2020-08-27] MEDS: ATORVASTATIN 20 MG TAB PO SCH (21:00)
--- NOTE | 2020-08-27 22:44 | NUR ---
pt resting comfortably in bed no signs of distress no complaints at this time
[2020-08-28] VITALS (8 sets, daily range): BP systolic 137–166; BP diastolic 54–84
--- NOTE | 2020-08-28 00:30 | NUR ---
pt resting comfortably in bed no signs of distress no complaints at this time
[2020-08-28 07:58] LABS: BASOPHILS % 0.2 % (0.0-1.0); EOSINOPHILS # (AUTO) 0.4 (0.0-0.4); EOSINOPHILS % 3.5 % (0.0-6.0); HEMATOCRIT 30.6 % (34.2-44.1); HEMOGLOBIN 10.3 g/dL (12.0-16.0); LYMPHOCYTES # (AUTO) 1.6 (1.0-3.2); LYMPHOCYTES % 14.5 % (18.0-39.1); MEAN CORPUSCULAR HEMOGLOBIN 30.9 pg (28-32); MEAN CORPUSCULAR HGB CONC 33.7 g/dL (31-35); MEAN CORPUSCULAR VOLUME 91.9 fL (81-99); MONOCYTES # (AUTO) 0.9 (0.2-0.8); MONOCYTES % 8.4 % (4.4-11.3); NEUTROPHILS # (AUTO) 8.1 (2.1-6.9); NEUTROPHILS % 72.9 % (38.7-80.0); PLATELET COUNT 178 x10e3/uL (140-360); RED BLOOD COUNT 3.33 x10e6/uL (3.6-5.1)
[2020-08-28] MEDS ORDERED: SODIUM CHLORIDE 0.9% 250ML 250 ML ONE (08:00)
--- NOTE | 2020-08-28 08:00 | NUR ---
PT RESTING IN BED. NO C/O CHEST PAIN. PT IN STABLE CONDITION. BED ALARM APPLIED. TELL APPLIED. WILL CONTINUE TO MONITOR.
[2020-08-28 08:23] LABS: ANION GAP 12.9 mmol/L (8-16); BLOOD UREA NITROGEN 13 mg/dL (7-26); BUN/CREATININE RATIO 15 (6-25); CALCIUM 8.7 mg/dL (8.4-10.2); CARBON DIOXIDE 22 mmol/L (22-29); CHLORIDE 105 mmol/L (98-107); CREATININE, SERUM 0.86 mg/dL (0.57-1.11); EST GLOMERULAR FILTRATION RATE > 60 ML/MIN (60-); GLUCOSE 174 mg/dL (74-118); POTASSIUM 3.9 mmol/L (3.5-5.1); SODIUM 136 mmol/L (136-145)
[2020-08-28] MEDS: VANCOMYCIN HCL 1GM/NS 250 ML BAG IV SCH (08:24)
[2020-08-28] MEDS: ASPIRIN 81 MG CHEW TAB PO SCH (08:27)
[2020-08-28] MEDS: SITAGLIPTIN 100 MG TAB PO SCH (09:00)
[2020-08-28] MEDS ORDERED: CITALOPRAM HYDROBROMIDE 20 MG TAB PO SCH (09:00)
[2020-08-28] MEDS: LEVOTHYROXINE SODIUM 100 MCG TAB PO SCH (09:14)
--- NOTE | 2020-08-28 10:30 | Progress Note ---
DATE: Cardiology Progress Note SUBJECTIVE: The patient is without any new complaints this morning. She denies any chest pain, fever, chills, shortness of breath, or palpitation. OBJECTIVE: VITAL SIGNS: Temperature 98.6, pulse 79, respiratory rate 18, blood pressure 137/54, and oxygen saturation 99% on room air. GENERAL: Alert and oriented x3. Resting comfortably in bed. Does not appear to be in any acute distress. NECK: Supple. No JVD noted. CARDIOVASCULAR: Regular rate and rhythm. Normal S1 and S2. No murmurs. No gallops. LUNGS: Clear to auscultation throughout, however, diminished breath sounds posterior lower lobes with some fine crackles. ABDOMEN: Soft and nontender. EXTREMITIES: Lower extremity, no edema. 2+ pedal pulses. NEUROLOGICAL: Alert and oriented x3. Normal affect. CARDIOVASCULAR MEDICATIONS: Aspirin 81 mg p.o. daily, atorvastatin 20 p.o. at bedtime, and losartan 20 mg p.o. daily. LABORATORY DATA: WBC 11.05, hemoglobin 10.3, hematocrit 30.6, and platelets 178. Sodium 136, potassium 3.9, BUN 13, creatinine 0.86, and GFR greater than 60. Telemetry, I have personally reviewed telemetry and it reflects normal sinus rhythm. IMPRESSION: 1. Paroxysmal atrial fibrillation. 2. Pneumonia. 3. Urinary tract infection. 4. Hypertension. 5. Sepsis. 6. Diabetes mellitus. RECOMMENDATIONS: Continue with antimicrobial therapy per primary care direction. Continue to monitor on telemetry at all time. Echocardiogram has been ordered. Further recommendations will follow. Hold off anticoagulation at this time given reports of some hematuria and no recurrence of atrial fibrillation noted so far. We will continue to follow this patient very closely and further recommendations will follow. Dictated by Ibis Pierre NP MD JORGE Damon/SHOAIB /[id number]
[2020-08-28] MEDS: CEFTRIAXONE SOD 1 GRAM/0.9% SOD CHL 50ML BAG IV SCH (11:17)
[2020-08-28] MEDS: INSULIN REGULAR, HUMAN 100 UNIT/1 ML 3ML VIAL SQ SCH ×4 (11:18→21:00)
[2020-08-28] MEDS: LOSARTAN POTASSIUM 25 MG TAB PO SCH (16:44)
[2020-08-28] MEDS: METFORMIN HCL 500 MG TAB PO SCH (16:50)
--- NOTE | 2020-08-28 19:00 | NUR ---
PT RESTING IN BED EATING. NO C/O CHEST PAIN. PT IN STABLE CONDITION. BED ALARM APPLIED. TELL APPLIED. SHIFT REPORT GIVEN TO ONCOMING NURSE.
[2020-08-28] MEDS: ATORVASTATIN 20 MG TAB PO SCH (20:39)
[2020-08-29] VITALS (9 sets, daily range): BP systolic 129–170; BP diastolic 63–81
[2020-08-29] MEDS: VANCOMYCIN HCL 1GM/NS 250 ML BAG IV SCH (06:04)
[2020-08-29 06:27] LABS: BASOPHILS % 0.3 % (0.0-1.0); EOSINOPHILS # (AUTO) 0.4 (0.0-0.4); EOSINOPHILS % 3.8 % (0.0-6.0); HEMOGLOBIN 10.8 g/dL (12.0-16.0); LYMPHOCYTES # (AUTO) 2.4 (1.0-3.2); LYMPHOCYTES % 22.9 % (18.0-39.1); MEAN CORPUSCULAR HEMOGLOBIN 30.8 pg (28-32); MEAN CORPUSCULAR HGB CONC 33.8 g/dL (31-35); MEAN CORPUSCULAR VOLUME 91.2 fL (81-99); MONOCYTES # (AUTO) 0.9 (0.2-0.8); MONOCYTES % 8.8 % (4.4-11.3); NEUTROPHILS # (AUTO) 6.6 (2.1-6.9); NEUTROPHILS % 63.8 % (38.7-80.0); PLATELET COUNT 201 x10e3/uL (140-360); RED BLOOD COUNT 3.51 x10e6/uL (3.6-5.1); RED CELL DISTRIBUTION WIDTH 13.8 % (11.7-14.4)
[2020-08-29 07:00] LABS: ANION GAP 14.9 mmol/L (8-16); BLOOD UREA NITROGEN 12 mg/dL (7-26); BUN/CREATININE RATIO 13 (6-25); CALCIUM 9.1 mg/dL (8.4-10.2); CARBON DIOXIDE 23 mmol/L (22-29); CHLORIDE 104 mmol/L (98-107); EST GLOMERULAR FILTRATION RATE > 60 ML/MIN (60-); GLUCOSE 165 mg/dL (74-118); POTASSIUM 3.9 mmol/L (3.5-5.1); SODIUM 138 mmol/L (136-145)
[2020-08-29] MEDS: INSULIN REGULAR, HUMAN 100 UNIT/1 ML 3ML VIAL SQ SCH ×4 (07:30→20:54)
[2020-08-29] MEDS: METFORMIN HCL 500 MG TAB PO SCH ×2 (08:30→16:57)
[2020-08-29] MEDS: LOSARTAN POTASSIUM 25 MG TAB PO SCH (08:30)
[2020-08-29] MEDS: ASPIRIN 81 MG CHEW TAB PO SCH (08:30)
[2020-08-29] MEDS: CEFTRIAXONE SOD 1 GRAM/0.9% SOD CHL 50ML BAG IV SCH (08:30)
[2020-08-29] MEDS: ESCITALOPRAM OXALATE 10 MG TAB PO SCH (08:31)
[2020-08-29] MEDS: LEVOTHYROXINE SODIUM 100 MCG TAB PO SCH (08:31)
[2020-08-29] MEDS ORDERED: VANCOMYCIN HCL 1GM/NS 250 ML BAG IV SCH (09:45)
[2020-08-29] MEDS ORDERED: CEFEPIME HCL 1 GM VIAL IV SCH (09:45)
[2020-08-29] MEDS ORDERED: METOPROLOL TARTRATE INJ 1 MG/ML VIAL IV ONE (10:15)
[2020-08-29] MEDS ORDERED: DIGOXIN INJ 0.25 MG/ML 2 ML AMP IV ONE (10:15)
--- NOTE | 2020-08-29 10:24 | Progress Note ---
DATE: 08/29/2020 CHIEF COMPLAINT/HISTORY OF PRESENT ILLNESS: This is a 75-year-old white woman whose primary treating diagnosis is left-sided pneumonia and urinary tract infection. On admission, she was found to be septic from these infections. Her sepsis is resolving. However, she states that her Parkinson symptoms are worsening since she has been off her carbidopa/levodopa for at least three days. The patient had blood work today, was found to have BUN and creatinine of 12 and 0.9 respectively. The patient's white blood cell count today is 10,400 with 63% segmented neutrophils. Blood and urine cultures did not reveal any bacterial growth. Also today, the patient was found to be in atrial fibrillation with rapid ventricular rate (heart rate was 140 beats per minute). The patient does complain of palpitations. REVIEW OF SYSTEMS: As per HPI. PHYSICAL EXAMINATION: GENERAL: She is awake, alert. She gets confused easily. She is very emotional. She is concerned about her high heart rate. VITAL SIGNS: Height 5 feet 2 inches, weight 168 pounds, BMI 30. Blood pressure is 170/80, pulse 72, respiratory rate 18, temperature 98.2, and oxygen 95% on room air. INTEGUMENT: Skin is warm and dry. No pallor, jaundice, or diaphoresis. HEENT: Anicteric sclerae. Moist mucous membranes. NECK: Supple. CARDIOVASCULAR: Tachycardic rate with irregular rhythm. LUNGS: Coarse breath sounds bilaterally. ABDOMEN: Benign. EXTREMITIES: No edema or deformity. NEUROLOGIC: Intact. DIAGNOSES: 1. Left lower lobe pneumonia likely gram-negative hien. 2. Sepsis secondary to tract infection, resolving. 3. Acute on chronic renal insufficiency, resolved. 4. Mild cognitive impairment. 5. Parkinson disease. 6. Atrial fibrillation with rapid ventricular rate. 7. Type 2 diabetes mellitus. 8. Hypertensive heart disease. PLAN: 1. Stop aspirin. 2. Start apixaban in the form of Eliquis for anticoagulation. 3. We will administer intravenous metoprolol tartrate 5 mg slowly over 2 minutes to treat patient's tachycardia. 4. We will administer digoxin 0.25 mg intravenous for the patient's tachycardia secondary to atrial fibrillation. 5. We would discontinue ceftriaxone and start intravenous cefepime. 6. We will continue intravenous vancomycin. 7. Repeat chest film this morning. 8. We will check results of the echocardiogram performed recently. 9. Mobilize physical therapy. 10. Follow blood and urine cultures. 11. We will hold discharge. 12. We will check a B-type natriuretic peptide level this morning to assess for intravascular volume overload. I spent 40 minutes in the care of the patient. MD PAM Amaral/SHOAIB /[id number]
[2020-08-29] MEDS: INSULIN GLARGINE 100 UNITS/ML VIAL SQ SCH (10:26)
--- NOTE | 2020-08-29 10:39 | Diagnostic Imaging Report ---
TECHNIQUE: Frontal view of the chest. INDICATION: ^AFIB and pneumonia ^[id number] ^1010 ^Y COMPARISON: 08/26/2020 DISCUSSION: Limited evaluation due to portable technique. Lines and hardware: Overlying EKG leads are again noted. Heart and mediastinum: Stable. Lungs and pleura: Previously identified lower lobe predominant interstitial opacities have improved. Improvement in aeration. Stable central vascular congestion. No large effusion or pneumothorax is noted. Soft tissues and bones: No acute abnormality. IMPRESSION: 1. Interval improvement in lower lobe predominant interstitial airspace opacities and aeration. 2. Stable cardiomegaly and central vascular congestion. Signed by: Mike Banda MD on 08/29/2020 10:36 AM
[2020-08-29] MEDS: CEFEPIME 1GM/NS 0.9% 50 ML 50 ML IV SCH ×2 (10:40→21:33)
[2020-08-29] MEDS: CARBIDOPA/LEVODOPA 25/100 TAB PO SCH ×3 (10:40→20:53)
[2020-08-29] MEDS: APIXABAN 5 MG TABLET PO SCH ×2 (10:40→16:57)
[2020-08-29] MEDS: VANCOMYCIN 1GM/NS 250 ML 250 ML IV SCH (17:50)
--- NOTE | 2020-08-29 17:56 | NUR ---
Discontinuing PT services since patient is modified independent in functional mobility.Thank you Addendum: 08/29/20 at 1756 by Lj lilly PT Amended: Links added.
--- NOTE | 2020-08-29 20:27 | Progress Note ---
DATE: Cardiology Progress Note SUBJECTIVE: The patient is feeling better. Reports palpitations this morning, now resolved. Some shortness of breath. OBJECTIVE: VITAL SIGNS: Temperature is 98, heart rate 75, respirations are 19, blood pressure is 129/77, oxygen saturation 97% on room air. GENERAL: Well appearing, no apparent distress. CARDIOVASCULAR: Regular rate and rhythm. LUNGS: Clear to auscultation. ABDOMEN: Soft, nontender, nondistended. EXTREMITIES: No clubbing, cyanosis or edema. VASCULAR: 2+ pulses. LABORATORY DATA: Reviewed. Hemoglobin is 10.8. TELEMETRY: Monitoring showed atrial fibrillation with rapid ventricular response. IMPRESSION: 1. Pneumonia. 2. Atrial fibrillation. 3. Parkinson disease. 4. Diabetes mellitus. 5. Hypertension. I agree with stopping aspirin and starting Eliquis for anticoagulation. Continue rate-controlling medications. Continue antibiotic therapies for her pneumonia. We will continue to follow along with you. DO LINDA Fiore/MODL /[id number]
[2020-08-29] MEDS: ATORVASTATIN 20 MG TAB PO SCH (20:53)
[2020-08-30] MEDS: METOPROLOL SUCCINATE 25 MG TAB XL PO SCH ×3 (01:00→17:33)
[2020-08-30] MEDS: VANCOMYCIN 1GM/NS 250 ML 250 ML IV SCH (05:14)
[2020-08-30 06:10] LABS: BASOPHILS # (AUTO) 0.1 (0.0-0.1); BASOPHILS % 0.5 % (0.0-1.0); EOSINOPHILS # (AUTO) 0.6 (0.0-0.4); EOSINOPHILS % 5.5 % (0.0-6.0); HEMATOCRIT 30.6 % (34.2-44.1); HEMOGLOBIN 10.1 g/dL (12.0-16.0); LYMPHOCYTES # (AUTO) 2.2 (1.0-3.2); LYMPHOCYTES % 21.5 % (18.0-39.1); MEAN CORPUSCULAR HEMOGLOBIN 30.3 pg (28-32); MEAN CORPUSCULAR VOLUME 91.9 fL (81-99); MONOCYTES % 9.4 % (4.4-11.3); NEUTROPHILS # (AUTO) 6.6 (2.1-6.9); NEUTROPHILS % 62.7 % (38.7-80.0); PLATELET COUNT 209 x10e3/uL (140-360); RED BLOOD COUNT 3.33 x10e6/uL (3.6-5.1); RED CELL DISTRIBUTION WIDTH 13.6 % (11.7-14.4)
[2020-08-30 06:34] LABS: ALBUMIN 2.8 g/dL (3.5-5.0); ALBUMIN/GLOBULIN RATIO 0.7 (0.8-2.0); ANION GAP 12.9 mmol/L (8-16); CALCIUM 8.8 mg/dL (8.4-10.2); CREATININE, SERUM 0.93 mg/dL (0.57-1.11); POTASSIUM 3.9 mmol/L (3.5-5.1)
[2020-08-30] MEDS: INSULIN REGULAR, HUMAN 100 UNIT/1 ML 3ML VIAL SQ SCH ×4 (07:30→20:49)
[2020-08-30 08:01] VITALS: BP 148/61
[2020-08-30 08:12] VITALS: BP 148/61
[2020-08-30] MEDS: LEVOTHYROXINE SODIUM 100 MCG TAB PO SCH (08:15)
[2020-08-30] MEDS: LOSARTAN POTASSIUM 25 MG TAB PO SCH (08:15)
[2020-08-30] MEDS: METFORMIN HCL 500 MG TAB PO SCH ×2 (08:15→17:32)
[2020-08-30] MEDS: ESCITALOPRAM OXALATE 10 MG TAB PO SCH (08:15)
[2020-08-30] MEDS: CARBIDOPA/LEVODOPA 25/100 TAB PO SCH ×3 (08:15→20:46)
[2020-08-30] MEDS: APIXABAN 5 MG TABLET PO SCH ×2 (08:15→17:32)
[2020-08-30] MEDS: CEFEPIME 1GM/NS 0.9% 50 ML 50 ML IV SCH ×2 (08:16→20:46)
--- NOTE | 2020-08-30 08:30 | NUR ---
Non-working PIV on right AC removed, catheter tip intact. 20 gauge IV to right hand started.
[2020-08-30] MEDS ORDERED: FUROSEMIDE INJ 10 MG/ML 4 ML VIAL IV ONE (09:15)
[2020-08-30] MEDS: INSULIN GLARGINE 100 UNITS/ML VIAL SQ SCH (10:06)
--- NOTE | 2020-08-30 10:25 | Progress Note ---
DATE: 08/30/2020 CHIEF COMPLAINT/HISTORY OF PRESENT ILLNESS: This is a 75-year-old white woman, whose primary treating diagnosis is sepsis secondary to urinary tract infection as well as left lower lobe pneumonia. Urine culture revealed the presence of Streptococcus viridans bacterial species 50,000 to 100,000 colony-forming units/mL urine. The patient states she feels much better today. She states she is more depressed than usual because her 91-year-old mother recently on home hospice services. Overall, the patient states she feels much better. White blood cell count today is 10,400 with 60% segmenters. The patient's hemoglobin is 10.1 g/dL. The patient's BUN and creatinine today is 19 and 0.93 respectively. The patient's B-type natriuretic peptide level was elevated yesterday with level 163. The patient underwent a chest x-ray yesterday, which revealed stable cardiomegaly with central vascular congestion as well as interval improvement in lower lobe predominant interstitial airspace opacities. REVIEW OF SYSTEMS: As per HPI. PHYSICAL EXAMINATION: GENERAL: She is awake. She is alert. She is fully oriented. She is no longer emotionally labile today. VITAL SIGNS: Blood pressure is 140/62, pulse 62, respiratory rate is 22, temperature is 98, oxygen 98% on room air. Height 5 feet 2 inches, weight 168 pounds. BMI 30. INTEGUMENT: Skin is warm and dry. No pallor, jaundice or diaphoresis. HEENT: Anterior sclerae. Moist mucous membranes. NECK: Supple. No evidence of jugular venous distention. CARDIOVASCULAR: Distant heart sounds. Regular rate and rhythm with S3 gallop. LUNGS: No rales. No rhonchi. ABDOMEN: Obese, benign. EXTREMITIES: No edema or deformity. NEUROLOGIC: Intact. DIAGNOSES: 1. Sepsis secondary to Streptococcus viridans urinary tract infection. 2. Left lower lobe pneumonia. 3. Acute on chronic diastolic congestive heart failure. 4. Acute on chronic renal insufficiency, resolved. 5. Mild cognitive impairment. 6. Adjustment disorder/major disorder. 7. Parkinson disease. 8. Paroxysmal atrial fibrillation. 9. Type 2 diabetes mellitus. 10. Hypertensive heart disease. PLAN: 1. Empathetic listening. 2. Reassurance. 3. We will stop intravenous vancomycin. 4. Continue intravenous cefepime. 5. We will administer one dose of intravenous furosemide 80 mg strength since the patient is experiencing mild pulmonary edema. 6. We will review final echocardiogram report. 7. Tentative discharge planning for tomorrow, Sunday, August 30, 2020. I spent 35 minutes in the care of the patient. MD PAM Amaral/SHOAIB /[id number] MTDD
[2020-08-30 12:23] VITALS: BP 141/66
--- NOTE | 2020-08-30 13:06 | Progress Note ---
DATE: Cardiology Progress Note SUBJECTIVE: The patient is feeling better. Denies any chest pain, shortness of breath, or palpitations. OBJECTIVE: VITAL SIGNS: Temperature is 98.0, heart rate 62, respirations 19, blood pressure is 140/61, and oxygen saturation is 98% on room air. GENERAL: Well-appearing, in no apparent distress. Alert and oriented x3. HEAD: Normocephalic and atraumatic. CARDIOVASCULAR: Regular rate and rhythm. LUNGS: Clear to auscultation. ABDOMEN: Soft, nontender, and nondistended. EXTREMITIES: No clubbing, cyanosis, or edema. LABORATORY DATA: Reviewed. CARDIOVASCULAR MEDICATIONS: Reviewed. IMPRESSION: 1. Paroxysmal atrial fibrillation. 2. Urinary tract infection. 3. Parkinson disease. 4. Diabetes mellitus. 5. Hypertension. RECOMMENDATIONS: Continue Eliquis for anticoagulation for stroke risk reduction. Continue metoprolol for rate and rhythm control. She is currently on antibiotics for her infectious processes. Monitor on telemetry. A 2D echocardiogram is pending. Rocco Tao DO BM/MODL /[id number]
[2020-08-30 16:54] VITALS: BP 152/66
[2020-08-30 20:00] VITALS: BP 134/62
[2020-08-30] MEDS: ATORVASTATIN 20 MG TAB PO SCH (20:46)
[2020-08-31] VITALS: BP 132/50
[2020-08-31 04:00] VITALS: BP 136/52
[2020-08-31 06:09] LABS: BASOPHILS # (AUTO) 0.1 (0.0-0.1); BASOPHILS % 0.6 % (0.0-1.0); EOSINOPHILS # (AUTO) 0.5 (0.0-0.4); EOSINOPHILS % 5.6 % (0.0-6.0); HEMATOCRIT 33.2 % (34.2-44.1); HEMOGLOBIN 10.9 g/dL (12.0-16.0); LYMPHOCYTES # (AUTO) 2.3 (1.0-3.2); LYMPHOCYTES % 24.3 % (18.0-39.1); MEAN CORPUSCULAR HEMOGLOBIN 29.8 pg (28-32); MEAN CORPUSCULAR HGB CONC 32.8 g/dL (31-35); MEAN CORPUSCULAR VOLUME 90.7 fL (81-99); MONOCYTES % 10.5 % (4.4-11.3); NEUTROPHILS # (AUTO) 5.5 (2.1-6.9); NEUTROPHILS % 58.6 % (38.7-80.0); PLATELET COUNT 243 x10e3/uL (140-360); RED BLOOD COUNT 3.66 x10e6/uL (3.6-5.1); RED CELL DISTRIBUTION WIDTH 13.6 % (11.7-14.4)
[2020-08-31 06:35] LABS: ANION GAP 14.9 mmol/L (8-16); CREATININE, SERUM 1.03 mg/dL (0.57-1.11); POTASSIUM 3.9 mmol/L (3.5-5.1)
[2020-08-31] MEDS: INSULIN REGULAR, HUMAN 100 UNIT/1 ML 3ML VIAL SQ SCH ×2 (07:30→11:30)
--- NOTE | 2020-08-31 07:40 | NUR ---
PATIENT IS AWAKE, ALERT, AND IN STABLE CONDITION WITH NO S/S OF RESPIRATORY DISTRESS. NO PAIN VOICED. TELEMETRY APPLIED. CALL LIGHT IS WITHIN REACH, PATIENT INSTRUCTED TO CALL FOR ASSISTANCE NEEDED
[2020-08-31] MEDS: LEVOTHYROXINE SODIUM 100 MCG TAB PO SCH (08:58)
[2020-08-31] MEDS: CARBIDOPA/LEVODOPA 25/100 TAB PO SCH (08:58)
[2020-08-31] MEDS: ESCITALOPRAM OXALATE 10 MG TAB PO SCH (08:58)
[2020-08-31] MEDS: INSULIN GLARGINE 100 UNITS/ML VIAL SQ SCH (08:58)
[2020-08-31] MEDS: LOSARTAN POTASSIUM 25 MG TAB PO SCH (08:58)
[2020-08-31] MEDS: METFORMIN HCL 500 MG TAB PO SCH (08:58)
[2020-08-31] MEDS: METOPROLOL SUCCINATE 25 MG TAB XL PO SCH (08:58)
[2020-08-31] MEDS: APIXABAN 5 MG TABLET PO SCH (08:58)
[2020-08-31 09:31] VITALS: BP 161/62
[2020-08-31 09:50] VITALS: BP 161/62
--- NOTE | 2020-08-31 10:35 | Discharge Summary ---
ADMITTING DIAGNOSES: 1. Sepsis secondary to urinary tract infection. 2. Left lower lobe pneumonia likely gram-negative hien. 3. Atrial fibrillation with rapid ventricular rate. 4. Ikoic-vl-hdbaoip renal insufficiency. 5. Mild cognitive impairment. 6. Parkinson disease. 7. Type 2 diabetes mellitus. 8. Hypertensive heart disease. DIAGNOSES ON DISCHARGE: 1. Sepsis secondary to Streptococcus viridans urinary tract infection, resolved. 2. Streptococcus viridans urinary tract infection, resolving. 3. Left lower lobe pneumonia likely gram-negative hien, resolved. 4. Dovco-vb-sgqjfgh renal insufficiency, resolved. 5. Mild cognitive impairment. 6. Hypertensive heart disease. 7. Type 2 diabetes mellitus. 8. Paroxysmal atrial fibrillation. 9. Adjustment disorder/major depressive disorder. 10. Aalne-ow-xrdaury diastolic congestive heart failure, resolved. HOSPITAL COURSE: This is a 75-year-old white woman, who was initially admitted to [facility] with diagnosis of sepsis secondary to urinary tract infection and left lower lobe pneumonia. During this hospitalization, it was felt that her left lobe pneumonia was likely secondary to gram-negative hien organisms. Her pneumonia resolved during this hospital stay with intravenous antibiotics namely vancomycin and cefepime. The patient was also found to have Staphylococcus viridans urinary tract infection, it was confirmed by urine culture. The patient was also diagnosed with atrial fibrillation with rapid ventricular rate during this hospital stay. The patient's heart rate was controlled with one dose of intravenous metoprolol tartrate 5 mg strength and digoxin 0.25 mg strength. The patient was also seen by Cardiology, namely Dr. Rocco Tao. The patient was started on apixaban, namely Eliquis 5 mg twice a day for anticoagulation in regard to her atrial fibrillation. The patient was also started on a beta-christine, namely metoprolol succinate 25 mg twice a day for heart rate control in regard to her atrial fibrillation. The patient underwent echocardiogram during this hospital stay, which revealed a preserved left ventricular ejection fraction of 60% to 65%. However, the echocardiogram did reveal findings consistent with diastolic heart failure, namely left ventricular hypertrophy. The patient did undergo cardiac enzymes during this hospitalization, which were not consistent with acute myocardial ischemia or infarction. On admission, the patient's lactic acid level was elevated 2.3, but it did normalize to 1.3 the following day. The patient's BUN and creatinine on admission were 18 and 1.12 respectively. On the day of discharge, the patient's BUN and creatinine was 28 and 1.03 respectively. The patient's condition on discharge was stable. DISCHARGE MEDICATIONS: 1. Penicillin V 500 mg one p.o. b.i.d. for 10 days. 2. Metoprolol succinate 25 mg b.i.d. 3. Eliquis 5 mg b.i.d. 4. Carbidopa/levodopa 25 mg/100 mg one t.i.d. 5. Metformin 1000 mg b.i.d. 6. Lexapro 20 mg daily. 7. Losartan 50 mg daily. 8. Levothyroxine 100 mcg daily. 9. Levemir insulin 20 units subcutaneous daily. 10. Atorvastatin 20 mg at bedtime. 11. The patient was instructed to stop sitagliptin and nitrofurantoin until further notice. FOLLOWUP INSTRUCTIONS: The patient was instructed to follow up with her primary care physician namely myself, Dr. Og Mcgee within [address] Rocco Tao her public services librarian in 2 weeks. MD PAM Amaral/SHOAIB /[id number] cc: Rocco Tao DO
[2020-08-31] MEDS: CEFEPIME 1GM/NS 0.9% 50 ML 50 ML IV SCH (10:41)
[2020-08-31] MEDS ORDERED: SINEMET 25-1001 EACH PO (13:59)
[2020-08-31] MEDS ORDERED: METOPROLOL SUCC25 MG PO (14:00)
[2020-08-31] MEDS ORDERED: ELIQUIS5 M1 PO (14:01)
[2020-08-31] MEDS ORDERED: PENICILLIN PO (14:02)
[2020-08-31 14:09] VITALS: BP 140/56
--- NOTE | 2020-08-31 15:26 | NUR ---
PATIENT DISCHARGE HOME- PATIENT OFF THE UNIT AT 1438 PER WHEELCHAIR ACCOMPANIED BY RN AND RESEARCH CLERK TO THE FRONT LOBBY. PATIENT IN STABLE CONDITION WITH NO S/S OF RESPIRATORY DISTRESS. NO PAIN VOICED. IV REMOVED WITH TIP INTACT. DISCHARGE TEACHING, INSTRUCTIONS, AND MEDICATIONS GIVEN TO THE PATIENT. ALL PERSONAL ITEMS TAKEN WITH THE PATIENT.
== END 2020-08-31 14:38 | disposition home or self-care (01) | DRG 871 ==
LOC: ER 22:16 → ERHOLD 08-27 00:15 → IMCU 08-27 01:51 → MED/SURG3 08-27 15:16
PROVIDERS: ADMIT Internal Medicine; ATTEND Internal Medicine
DX: A41.9 Sepsis, unspecified organism (principal); J15.6 Pneumonia due to other Gram-negative bacteria; I50.33 Acute on chronic diastolic (congestive) heart failure; N39.0 Urinary tract infection, site not specified; E87.2 Acidosis; N17.9 Acute kidney failure, unspecified; I13.0 Hypertensive heart and chronic kidney disease with heart failure and stage 1 through stage 4 chronic kidney disease, or unspecified chronic kidney disease; I48.0 Paroxysmal atrial fibrillation; E11.9 Type 2 diabetes mellitus without complications; E03.9 Hypothyroidism, unspecified; G20 Parkinson's disease; R65.20 Severe sepsis without septic shock; E66.9 Obesity, unspecified; Z68.30 Body mass index [BMI] 30.0-30.9, adult; B95.4 Other streptococcus as the cause of diseases classified elsewhere; N18.9 Chronic kidney disease, unspecified; F43.20 Adjustment disorder, unspecified; F32.9 Major depressive disorder, single episode, unspecified; G31.84 Mild cognitive impairment of uncertain or unknown etiology; Z20.828 Contact with and (suspected) exposure to other viral communicable diseases
CPT/HCPCS: 36415; 71045; 80048; 80053; 80202; 81001; 82550; 82553; 82948; 83605; 83690; 83880; 84443; 84484; 85025; 87040; 87086; 93005; 93306; 99284; J0456; J0692; J0696; J1160; J1815; J1817; J1940; J3370; J7030; J7050; U0002

== ENCOUNTER 2020-11-10 10:49 | Emergency (ER) | payer MEDICARE, BC ==
[~2020-11-10] VITALS: Ht 157.5 cm; Wt 76.2 kg
[~2020-11-10 10:49] MED LIST changes: +ELIQUIS5 M1 PO; +ESCITALOPRAM OX20 MG PO; +LEVOTHYROXINE100 MCG PO; +LOSARTAN POTASS25 MG PO; +METOPROLOL SUCC25 MG PO; +NITROFURANTOIN100 M1; +PENICILLIN PO; +SINEMET 25-1001 EACH PO
[2020-11-10] MEDS ORDERED: ASPIRIN 81 MG CHEW TAB PO ONE (11:00)
[2020-11-10 11:19] LABS: BASOPHILS # (AUTO) 0.1 (0.0-0.1); BASOPHILS % 0.5 % (0.0-1.0); EOSINOPHILS % 7.6 % (0.0-6.0); HEMOGLOBIN 11.5 g/dL (12.0-16.0); LYMPHOCYTES # (AUTO) 1.6 (1.0-3.2); LYMPHOCYTES % 12.2 % (18.0-39.1); MEAN CORPUSCULAR HEMOGLOBIN 29.9 pg (28-32); MEAN CORPUSCULAR HGB CONC 32.9 g/dL (31-35); MEAN CORPUSCULAR VOLUME 91.1 fL (81-99); MONOCYTES # (AUTO) 0.8 (0.2-0.8); MONOCYTES % 6.4 % (4.4-11.3); NEUTROPHILS # (AUTO) 9.3 (2.1-6.9); NEUTROPHILS % 72.7 % (38.7-80.0); PLATELET COUNT 287 x10e3/uL (140-360); RED BLOOD COUNT 3.84 x10e6/uL (3.6-5.1); RED CELL DISTRIBUTION WIDTH 14.2 % (11.7-14.4)
[2020-11-10 11:37] LABS: ALBUMIN/GLOBULIN RATIO 0.7 (0.8-2.0); ALKALINE PHOSPHATASE 61 IU/L (40-150); BLOOD UREA NITROGEN 22 mg/dL (7-26); BUN/CREATININE RATIO 16 (6-25); CARBON DIOXIDE 23 mmol/L (22-29); CHLORIDE 103 mmol/L (98-107); CREATINE KINASE 42 IU/L (29-168); CREATININE, SERUM 1.38 mg/dL (0.57-1.11); EST GLOMERULAR FILTRATION RATE 37 ML/MIN (60-); GLUCOSE 266 mg/dL (74-118); SODIUM 139 mmol/L (136-145)
[2020-11-10 11:39] LABS: ALANINE AMINOTRANSFERASE < 6 IU/L (0-55)
[2020-11-10] MEDS ORDERED: DILTIAZEM HCL 5 MG/ML 5 ML VIAL IV ONE (11:45)
[2020-11-10 12:06] LABS: FREE THYROXINE INDEX 2.5148 (1.4-3.8); THYROID STIMULATING HORMONE 1.042 uIU/mL (0.350-4.940)
[2020-11-10 12:47] LABS: CLARITY,URINE CLEAR (CLEAR); COLOR,URINE YELLOW (YELLOW); KETONES,URINE NEGATIVE (NEGATIVE); LEUKOCYTE ESTERASE ,URINE NEGATIVE (NEGATIVE); NITRITE,URINE NEGATIVE (NEGATIVE); PROTEIN,URINE DIPSTICK 1+ (NEGATIVE); URINE UROBILINOGEN 0.2 mg/dL (0.2 - 1)
[2020-11-10 12:48] LABS: EPITHELIAL CELLS,URINE RARE /LPF; MUCUS,URINE FEW (RARE); RBC,URINE 0-5 /HPF (0-5); WBC,URINE (MAN) 0-5 /HPF (0-5)
[2020-11-10 13:59] VITALS: BP 148/85
== END 2020-11-10 14:11 | disposition home or self-care (01) ==
LOC: ER 10:54
DX: I48.20 Chronic atrial fibrillation, unspecified (principal); R00.2 Palpitations; R94.31 Abnormal electrocardiogram [ECG] [EKG]; Z11.52 Encounter for screening for COVID-19
CPT/HCPCS: 36415; 71045; 80053; 81001; 82550; 82553; 84436; 84443; 84479; 84484; 85025; 93005; 99284; U0002

== ENCOUNTER 2023-05-11 18:12 | Emergency (ER) | payer MEDICARE, BC ==
[~2023-05-11] VITALS: Ht 157.5 cm; Wt 76.2 kg
[2023-05-11 20:59] VITALS: O2SAT 100
== END 2023-05-11 21:18 | disposition home or self-care (01) ==
LOC: ER 18:28
DX: S00.01XA Abrasion of scalp, initial encounter (principal); M54.2 Cervicalgia; M25.511 Pain in right shoulder; M54.6 Pain in thoracic spine; M54.50 Low back pain, unspecified; W01.0XXA Fall on same level from slipping, tripping and stumbling without subsequent striking against object, initial encounter; Y92.89 Other specified places as the place of occurrence of the external cause
CPT/HCPCS: 70450; 72125; 72128; 72131; 72170; 99284